=== PATIENT | female | born 1995 | race Caucasian/White ===

== ENCOUNTER → 2017-06-03 12:24 | Outpatient (CLI) | payer OTHER, MEDICAID, SELFPAY ==
--- NOTE | 2017-06-03 12:30 | US_ITS ---
STUDY: ULTRASOUND OF THE FEMALE PELVIS - COMPLETE REASON FOR EXAM: Female, 21 years old. Cramping. Verification of IUD placement. LMP: May 27, 2017. TECHNIQUE: Transabdominal and Transvaginal TECHNICAL QUALITY: Adequate. COMPARISON: None. FINDINGS: The uterus is anteverted and is in a midline position. The uterus measures 8.9 cm x 5.1 cm x 4.1 cm. Normal uterine cervix. The endometrium measures 2.6 mm in thickness, and is hyperechoic. There is no demonstrated endometrial mass. There is no demonstrated myometrial mass. I.U.D. - The patient does have an I.U.D. the IUD is within the fundal portion of the uterus. The right ovary is visualized. The right ovary measures 2.9 cm x 3.1 cm x 2.4 cm. There is a 1.9 cm x 2.2 Marcos by 1.5 cm ovarian cyst. There is no visualized right adnexal mass or complex lesion. There is normal arterial and normal venous vascularity. The left ovary is visualized. The left ovary measures 3.1 cm x 2.2 cm x 1.6 cm. There is no left ovarian cyst or ovarian mass. There is no visualized left adnexal mass or complex lesion. There is normal arterial and normal venous vascularity. There is minimal fluid in the cul-de-sac. US/Pelvic (Non ) IMPRESSION: Right ovarian cyst. The IUD is seen within the fundal portion of the uterus. Electronically Signed: Dayne Juarez MD at 15:47 EST Tel [phone], Service support ,
--- NOTE | 2017-06-03 13:30 | US_ITS ---
STUDY: ULTRASOUND OF THE FEMALE PELVIS - COMPLETE REASON FOR EXAM: Female, 21 years old. Cramping. Verification of IUD placement. LMP: May 27, 2017. TECHNIQUE: Transabdominal and Transvaginal TECHNICAL QUALITY: Adequate. COMPARISON: None. FINDINGS: The uterus is anteverted and is in a midline position. The uterus measures 8.9 cm x 5.1 cm x 4.1 cm. Normal uterine cervix. The endometrium measures 2.6 mm in thickness, and is hyperechoic. There is no demonstrated endometrial mass. There is no demonstrated myometrial mass. I.U.D. - The patient does have an I.U.D. the IUD is within the fundal portion of the uterus. The right ovary is visualized. The right ovary measures 2.9 cm x 3.1 cm x 2.4 cm. There is a 1.9 cm x 2.2 Marcos by 1.5 cm ovarian cyst. There is no visualized right adnexal mass or complex lesion. There is normal arterial and normal venous vascularity. The left ovary is visualized. The left ovary measures 3.1 cm x 2.2 cm x 1.6 cm. There is no left ovarian cyst or ovarian mass. There is no visualized left adnexal mass or complex lesion. There is normal arterial and normal venous vascularity. There is minimal fluid in the cul-de-sac. US/Transvaginal Non- IMPRESSION: Right ovarian cyst. The IUD is seen within the fundal portion of the uterus. Electronically Signed: Dayne Juarez MD at 15:47 EST Tel [phone], Service support ,
== END ==
PROVIDERS: Family Provider Family Medicine; PCP Family Medicine; Visit Provider Nurse Practitioner Women's Health
DX: R10.2 Pelvic and perineal pain (principal); Z30.431 Encounter for routine checking of intrauterine contraceptive device
CPT/HCPCS: 76830; 76856; 93976

== ENCOUNTER → 2017-11-18 15:28 | Outpatient (CLI) | payer OTHER, SELFPAY ==
[2017-11-18 22:56] LABS: Chlamydia Trachomatis by PCR Negative (Negative); Neisserai gonorrhoeae by PCR Negative (Negative); Probe Check PASS; Sample Adequacy Control PASS; Specimen Processing Control PASS
[2017-11-19 09:59] LABS: HIV - WCH Non-Reactive (Nonreactive)
[2017-11-21 03:16] LABS: Rapid Plasmin Reagin (RPR) NONREACTIVE (NONREACTIVE)
[2017-11-23 03:06] LABS: HCV Quant. RNA PCR HCV Not Detected IU/mL (.)
[2017-11-24 11:11] LABS: HEPATITIS B SURFACE AG Negative (Negative); HSV 2 IgG < 0.91 index (0.00-0.90)
[2017-11-27 17:10] LABS: HPV APTIMA, High Risk Positive (Negative); HPV Reflexed? YES, CHARGE PATIENT
== END ==
PROVIDERS: Family Provider Family Medicine; PCP Family Medicine; Visit Provider Nurse Practitioner Women's Health
DX: Z12.4 Encounter for screening for malignant neoplasm of cervix (principal); Z11.3 Encounter for screening for infections with a predominantly sexual mode of transmission
CPT/HCPCS: 36415; 86592; 86695; 86696; 86703; 87340; 87491; 87522; 87591; 87624; 88175; G0145

== ENCOUNTER → 2018-11-30 | Outpatient (CLI) | payer OTHER, SELFPAY ==
[2018-11-30 15:23] VITALS: BMI 35.5
[2018-12-08 16:48] LABS: HPV APTIMA, High Risk Negative (Negative); HPV Reflexed? YES, CHARGE PATIENT
== END | disposition home or self-care (01) ==
LOC: LABSPEC 12-01 09:10
PROVIDERS: Family Provider Family Medicine; PCP Family Medicine; Referring Provider Nurse Practitioner Women's Health; Visit Provider Nurse Practitioner Women's Health
DX: R87.610 Atypical squamous cells of undetermined significance on cytologic smear of cervix (ASC-US) (principal)
CPT/HCPCS: 87624; 88175; G0145

== ENCOUNTER → 2022-10-04 | Outpatient (CLI) | payer MEDICAID, SELFPAY ==
[2022-10-08 07:08] LABS: Chlamydia By Nucleic Acid AMP Negative (Negative); Gonococcus By Nucleic Acid AMP Negative (Negative)
== END | disposition home or self-care (01) ==
LOC: LABSPEC 16:59
PROVIDERS: PCP Family Medicine; Referring Provider Registered Nurse; Visit Provider Registered Nurse
DX: O09.90 Supervision of high risk pregnancy, unspecified, unspecified trimester (principal); Z3A.00 Weeks of gestation of pregnancy not specified
CPT/HCPCS: 87086; 87491; 87591

== ENCOUNTER → 2022-11-04 | Outpatient (CLI) | payer MEDICAID, SELFPAY ==
[2022-11-04 14:10] LABS: Absolute Neutrophil Count 4.3 X10^3/uL (2.0-7.7); Basophil# 0.01 X10^3/uL; Basophil% 0.2 % (0-1); Eosinophil# 0.04 X10^3/uL; Eosinophils% 0.6 % (0-5); Hematocrit 36.9 % (37-47); Hemoglobin 13.3 g/dL (12.0-15.0); Lymphocyte % 24.3 % (19-41); Mean Corpuscular Hgb 32.1 pg (27.0-32.0); Mean Corpuscular Volume 89.1 fL (81-99); Mean Platelet Vol. 10.1 fl (6.2-12.0); Monocyte# 0.31 X10^3/uL; NRBC Flagged by Analyzer 0 % (0-5); Neutrophil # 4.29 X10^3/uL (2.7-7.7); Neutrophil % 69.6 % (47-70); Platelet Count 174 K/mm3 (150-450); RBC Distribution Width CV 11.9 % (11.6-14.6); RBC Distribution Width SD 37.9 fl (35.1-43.9); Red Blood Count 4.14 M/mm3 (4.2-5.4); White Blood Count 6.2 K/mm3 (4.4-11.0)
[2022-11-04 14:49] LABS: NATERA MAILED SPECIMEN
[2022-11-04 15:19] LABS: Glucose Challenge Gest 1H 50g 96 mg/dL (70-140); T4 Free Direct 0.89 ng/dL (0.76-1.46); Thyroid Stim Hormone (TSH) 1.51 uIU/mL (0.358-3.74)
[2022-11-04 15:47] LABS: HIV - WCH Non-Reactive (Nonreactive); Hepatitis B Surface Antigen Non-Reactive (Nonreactive); Rubella IgG Reactive (Nonreactive); Syphilis Antibodies Non-reactive
[2022-11-07 05:07] LABS: V-Zoster IgG (Immunity) 2810 index (Immune >165)
== END | disposition home or self-care (01) ==
LOC: PAVLAB 13:41
PROVIDERS: Registered Nurse; PCP Family Medicine; Referring Provider Advanced Practice Midwife; Visit Provider Advanced Practice Midwife
DX: O09.90 Supervision of high risk pregnancy, unspecified, unspecified trimester (principal); Z31.430 Encounter of female for testing for genetic disease carrier status for procreative management; Z3A.00 Weeks of gestation of pregnancy not specified
CPT/HCPCS: 36415; 82950; 84439; 84443; 85025; 86703; 86762; 86780; 86787; 86850; 86900; 86901; 87340

== ENCOUNTER → 2023-01-27 | Outpatient (CLI) | payer BC, SELFPAY ==
[2023-01-27 09:47] LABS: Absolute Lymphocyte Count 1.32 X10^3/uL (0.83-4.51); Absolute Neutrophil Count 5.3 X10^3/uL (2.0-7.7); Basophil# 0.02 X10^3/uL; Basophil% 0.3 % (0-1); Eosinophil# 0.05 X10^3/uL; Eosinophils% 0.7 % (0-5); Hematocrit 38.8 % (37-47); Hemoglobin 13.2 g/dL (12.0-15.0); Lymphocyte # 1.32 X10^3/ul (0.83-4.51); Lymphocyte % 18.9 % (19-41); Mean Corpuscular Volume 91.1 fL (81-99); Mean Platelet Vol. 10.2 fl (6.2-12.0); Monocyte# 0.28 X10^3/uL; NRBC Flagged by Analyzer 0 % (0-5); Neutrophil # 5.25 X10^3/uL (2.7-7.7); Neutrophil % 75.4 % (47-70); Platelet Count 170 K/mm3 (150-450); RBC Distribution Width CV 12.4 % (11.6-14.6); RBC Distribution Width SD 40.6 fl (35.1-43.9); Red Blood Count 4.26 M/mm3 (4.2-5.4)
[2023-01-27 10:07] LABS: Glucose Challenge Gest 1H 50g 139 mg/dL (70-140)
== END | disposition home or self-care (01) ==
PROVIDERS: PCP Family Medicine; Referring Provider Registered Nurse; Visit Provider Registered Nurse
DX: O09.90 Supervision of high risk pregnancy, unspecified, unspecified trimester (principal); Z3A.00 Weeks of gestation of pregnancy not specified
CPT/HCPCS: 36415; 82950; 85025

== ENCOUNTER → 2023-02-11 | Outpatient (CLI) | payer BC, SELFPAY ==
[2023-02-11 11:19] LABS: Glucose GTT-Gestation. Fasting 82 mg/dL (<105)
[2023-02-11 11:34] LABS: Glucose GTT-Gestational 1 Hr 185 mg/dL (<190)
[2023-02-11 13:14] LABS: Glucose GTT-Gestational 2 Hr 194 mg/dL (<165)
[2023-02-11 13:46] LABS: Glucose GTT-Gestational 3 Hr 147 L (<145)
== END | disposition home or self-care (01) ==
LOC: LAB 09:57
PROVIDERS: PCP Family Medicine; Referring Provider Registered Nurse; Visit Provider Registered Nurse
DX: Z13.1 Encounter for screening for diabetes mellitus (principal)
CPT/HCPCS: 36415; 82951; 82952

== ENCOUNTER 2023-03-04 10:48 | Outpatient (RCR) | payer BC, SELFPAY | END 2023-03-04 23:59 | LOC: DC 10:48 | PROVIDERS: PCP Family Medicine; Visit Provider Registered Nurse | DX: O24.419 Gestational diabetes mellitus in pregnancy, unspecified control (principal); Z3A.00 Weeks of gestation of pregnancy not specified | CPT/HCPCS: 97802 ==

== ENCOUNTER → 2023-03-10 | Outpatient (CLI) | payer BC, SELFPAY ==
[2023-03-10 11:45] LABS: Absolute Lymphocyte Count 1.55 X10^3/uL (0.83-4.51); Absolute Neutrophil Count 5.5 X10^3/uL (2.0-7.7); Basophil# 0.02 X10^3/uL; Basophil% 0.3 % (0-1); Eosinophil# 0.03 X10^3/uL; Eosinophils% 0.4 % (0-5); Hematocrit 37.3 % (37-47); Lymphocyte # 1.55 X10^3/ul (0.83-4.51); Lymphocyte % 20.5 % (19-41); Mean Corp Hgb Conc 34.9 g/dL (32-36); Mean Corpuscular Hgb 30.9 pg (27.0-32.0); Mean Corpuscular Volume 88.6 fL (81-99); Mean Platelet Vol. 10.7 fl (6.2-12.0); Monocyte# 0.43 X10^3/uL; Monocyte% 5.7 % (0-10); NRBC Flagged by Analyzer 0 % (0-5); Neutrophil # 5.47 X10^3/uL (2.7-7.7); Neutrophil % 72.4 % (47-70); Platelet Count 169 K/mm3 (150-450); RBC Distribution Width SD 41.8 fl (35.1-43.9); Red Blood Count 4.21 M/mm3 (4.2-5.4); White Blood Count 7.6 K/mm3 (4.4-11.0)
[2023-03-10 13:02] LABS: T4 Free Direct 0.85 ng/dL (0.76-1.46); Thyroid Stim Hormone (TSH) 0.99 uIU/mL (0.358-3.74)
[2023-03-10 15:08] LABS: HIV - WCH Non-Reactive (Nonreactive); Syphilis Antibodies Non-reactive
== END | disposition home or self-care (01) ==
LOC: PAVLAB 11:18
PROVIDERS: PCP Family Medicine; Referring Provider Obstetrics & Gynecology; Visit Provider Obstetrics & Gynecology
DX: O09.90 Supervision of high risk pregnancy, unspecified, unspecified trimester (principal)
CPT/HCPCS: 36415; 84439; 84443; 85025; 86703; 86780; 86850; 86900; 86901

== ENCOUNTER 2023-03-13 10:48 | Outpatient (RCR) | payer BC, SELFPAY | END 2023-04-03 23:59 | LOC: DC 10:48 | PROVIDERS: PCP Family Medicine; Visit Provider Registered Nurse | DX: O24.419 Gestational diabetes mellitus in pregnancy, unspecified control (principal) | CPT/HCPCS: 97803 ==

== ENCOUNTER → 2023-04-08 | Outpatient (CLI) | payer BC, SELFPAY ==
--- NOTE | 2023-04-08 14:48 | US_ITS ---
STUDY: OBSTETRICAL ULTRASOUND - BIOPHYSICAL PROFILE REASON FOR EXAM: Female, 27 years old Non reactive NST LMP: Unknown. PRIOR ULTRASOUND: None. TECHNIQUE: Transabdominal TECHNICAL QUALITY: Adequate. FINDINGS: There is a single intrauterine fetus. The fetus is in a cephalic presentation. There is demonstrated cardiac activity with a heart rate of 138 bpm. There is a normal amniotic fluid volume. The largest amniotic fluid pocket measures 4.2 cm. The amniotic fluid index (PALOMA) is 10.9 cm. The placenta is anterior in location and is not low lying. There are Grade 3 placental changes. Age by report: 35 weeks, 2 days. UTE by report: May 11, 2023. BIOPHYSICAL PROFILE: Breathing Movements (FBM): 2 Gross Body Movements (GBM): 2 Tone (FT): 2 Amniotic Fluid Volume (AFV): 2 TOTAL SCORE: 8 / 8 US/Biophysical Prof W/O Non Stres IMPRESSION: Normal biophysical profile of 8/8. Electronically Signed: Los Shearer MD at 22:50 EST ,
== END | disposition home or self-care (01) ==
LOC: OPUS 14:47
PROVIDERS: PCP Family Medicine; Referring Provider Advanced Practice Midwife; Visit Provider Advanced Practice Midwife
DX: O28.8 Other abnormal findings on antenatal screening of mother (principal); Z3A.00 Weeks of gestation of pregnancy not specified
CPT/HCPCS: 76819

== ENCOUNTER → 2023-04-10 | Outpatient (CLI) | payer BC, SELFPAY | END | disposition home or self-care (01) | LOC: LABSPEC 13:57 | PROVIDERS: PCP Family Medicine; Referring Provider Obstetrics & Gynecology; Visit Provider Obstetrics & Gynecology | DX: O26.899 Other specified pregnancy related conditions, unspecified trimester (principal); R10.2 Pelvic and perineal pain; Z3A.00 Weeks of gestation of pregnancy not specified | CPT/HCPCS: 87086 ==

== ENCOUNTER 2023-04-12 13:58 | Outpatient (CLI) | payer BC, SELFPAY ==
[2023-04-12 14:10] VITALS: BMI 35.5
[2023-04-12 14:11] VITALS: BP 122/74; PULSE 102; PULSE 93; TEMP 36.7; O2SAT 97
--- NOTE | 2023-04-12 20:32 | OB.TRI.HP_ITS ---
HPI - General HPI Narrative LACHELLE URENA, is a 27 F who presents Maternal Data Information UTE Calculator Estimated Delivery Date Method Current WG Current Estimate 05/11/23 LMP (Certain) 35w 6d PFSH PFSH Medical History Anxiety and depression Thyroid disease Home Medications levothyroxine 88 mcg capsule 88 mcg PO DAILY #30 caps 12/04/22 [Rx Last Taken Unknown] vits 75-iron 28 mg-folic acid 800 mcg-omega3 440 mg oral pack (One Daily ) 1 pkg PO 01/02/23 [History Last Taken Unknown] blood sugar diagnostic (Blood Glucose Test strips) #120 ea 02/12/23 [Rx Last Taken Unknown] blood-glucose meter #1 ea 02/12/23 [Rx Last Taken Unknown] lancets #200 ea 02/12/23 [Rx Last Taken Unknown] metformin 500 mg tablet 1,000 mg PO QHS 04/10/23 [History Last Taken Unknown] Allergy/AdvReac Type Severity Reaction Status Date / Time No Known Allergies Allergy Verified 04/12/23 14:33 Family History Mother Diabetes Grandfather Heart disease Surgical History [place] teeth extracted Social History number of children: 1 Smoking Status: Current some day smoker alcohol intake: current details: social - none during substance use type: does not use caffeine: Yes what type of physical activity do you participate in: none seatbelt use: always do you feel safe at home: Yes additional social history: [facility] History 2 Elective abortions Hx Para 1 Spontaneous abortions Hx # Term Pregnancies Ectopic pregnancies Hx # Pregnancies Multiple births # of living children Past Pregnancies Del. Date Name GA/Weeks Outcome Route Bth Weight Gen Labor Lgth Anesthesia Del Locatn Provider FOB Unknown 2015 Umesh 40 live - full term 8 lbs 9 oz Male 28 epidural [place] [facility] Delivery Date: Last Updated by: Annabelle Javier GBS+ Visit Details Expected Delivery Route/Plan Labor Preferences- CB/BF classes: [] labor support person: Fede labor intervention preferences: [] pain management options preferred: [] cut cord/dad catch: [] : [] PP control planned: [] discussed possible routes of delivery and associated risks: [] special requests: [] Plans Covid status: [] Flu vaccine: [] Tdap vaccine: [] Rhogam: [] LARC form signed: [] Problem list reviewed and updated with the most current plan of care details and appropriate orders placed. Relevant counseling for the gestational age provided. Continue routine care and follow up unless otherwise noted in visit notes/problem list details OB Flowsheet Initial Weight: Not Recorded Date -?-?-?-?-?-?-?-?-?-?-?-?- EGA Weight BP Urine Prot -?-?-?-?-?-?-?-?-?-?-?-?- Glucose FHR FuHt Pres Dilation -?-?-?-?-?-?-?-?-?-?-?-?- Effaced St Visit Note 10/04/22 -?-?-?-?-?-?-?-?-?-?-?-?- 8w 5d 195 lb 8 oz 114/80 -?-?-?-?-?-?-?-?-?-?-?-?- 171 -?-?-?-?-?-?-?-?-?-?-?-?- LC- CRL cw LMP. UTE 05/11/2023. LC- CRL cw LMP. UTE 05/11/2023 . accepts genetic screening. early 1 hour GCT 11/04/22 -?-?-?-?-?-?-?-?-?-?-?-?- 13w 1d 200 lb 2 oz Negative -?-?-?-?-?-?-?-?-?-?-?-?- Negative 165 -?-?-?-?-?-?-?-?-?-?-?-?- KW- STOPPED SMOK ING 3 weeks ago. no cramping or VB. US ordered. labs drawn today 12/04/22 -?-?-?-?-?-?-?-?-?-?-?-?- 17w 3d 204 lb 104/69 Negative -?-?-?-?-?-?-?-?-?-?-?-?- Negative 145 -?-?-?-?-?-?-?-?-?-?-?-?- LC- no vb/crampi ng.discussed and declines afp. 01/02/23 -?-?-?-?--?-?-?-?-?-?-?-?- 21w 4d 202 lb 8 oz 107/75 Nega tive -?-?-?-?-?-?-?-?-?-?-?-?- Negative 147 -?-?-?-?-?-?-?-?-?-?-?-?- JV- no lof, vagi nal bleeding, and feeling movement. normal anatomy scan and deciding on echo. (for fhx of PFO) 01/27/23 -?-?-?-?-?-?-?-?-?-?-?-?- 25w 1d 205 lb 8 oz 108/73 Nega tive -?-?-?-?-?-?-?-?-?-?-?-?- Negative 153 25 -?-?-?-?-?-?-?-?-?-?-?-?- LC- no vb/ctx/lo f. good fm. obtaining 28 week labs today. declines echo for now. 02/24/23 -?-?-?-?-?-?-?-?-?-?-?-?- 29w 1d 207 lb 4 oz 111/76 Nega tive -?-?-?-?-?-?-?-?-?-?-?-?- Negative 152 29 -?-?-?-?-?-?-?-?-?-?-?-?- JV- fasting's ar e 90's- 101 and she has tried snacks vs no snacks, nothing working. wants to try metformin but wants to give it one more week. no lof, vaginal bleeding, or dec fm. 03/10/23 -?-?-?-?-?-?-?-?-?-?-?-?- 31w 1d 206 lb 4 oz 104/73 -?-?-?-?-?-?-?-?-?-?-?-?- 140 31 -?-?-?-?-?-?-?-?-?-?-?-?- SM- fastings now -95, didn't start any medication. seeing chiropractor for her back. no vb lof good fm no regular ctx SM- repeta labs drawn, fasti ngs now -, didn't start any medication. seeing chiropractor for her back. no vb lof good fm no regular ctx 03/24/23 -?-?-?-?-?-?-?-?-?-?-?-?- 33w 1d 213 lb 8 oz 111/75 Nega tive -?-?-?-?-?-?-?-?-?-?-?-?- Negative 155 32 -?-?-?-?-?-?-?-?-?-?-?-?- JV- fasting leve ls now 90's-111, starting metformin at bedtime now. no lof, vaginal bleeding, or dec fm. JV- fasting levels now 90's- 111, starting metformin at bedtime now. no lof, vaginal bleeding, or dec fm. start NSTs next visit. growth scan at 36 weeks. 04/08/23 -?-?-?-?-?-?-?-?-?-?-?-?- 35w 2d 210 lb 4 oz 110/76 Nega tive -?-?-?-?-?-?-?-?-?-?-?-?- Negative 140 35 -?-?-?-?-?-?-?-?-?-?-?-?- kw-no vb/lof/ctx . reports FM. Consulted with JV elevated fasting BS, plan to increase Metformin to 1000 at HS. kw-no vb/lof/ctx. reports FM . Consulted with JV elevated fasting BS, plan to increase Metformin to 1000 at HS. BPP today for minimal variability 04/10/23 -?-?-?-?-?-?-?-?-?-?-?-?- 35w 4d 212 lb 4 oz 93/63 Nega tive -?-?-?-?-?-?-?-?-?-?-?-?- Negative 145 -?-?-?-?-?-?-?-?-?-?-?-?- kw-reactive NST. good fm. Assessment & Plan (1) Decreased movement affecting management of in third trimester: PLAN: NST reactive here and patient is now feeling movement. ok to dc to home
--- NOTE | 2023-04-12 20:32 | OB.TRI.NOTE ---
HPI - General HPI Narrative LACHELLE URENA, is a 27 F who presents Maternal Data Information UTE Calculator Estimated Delivery Date Method Current WG Current Estimate 05/11/23 LMP (Certain) 35w 6d PFSH PFSH Medical History Anxiety and depression Thyroid disease Home Medications levothyroxine 88 mcg capsule 88 mcg PO DAILY #30 caps 12/04/22 [Rx Last Taken Unknown] vits 75-iron 28 mg-folic acid 800 mcg-omega3 440 mg oral pack (One Daily ) 1 pkg PO 01/02/23 [History Last Taken Unknown] blood sugar diagnostic (Blood Glucose Test strips) #120 ea 02/12/23 [Rx Last Taken Unknown] blood-glucose meter #1 ea 02/12/23 [Rx Last Taken Unknown] lancets #200 ea 02/12/23 [Rx Last Taken Unknown] metformin 500 mg tablet 1,000 mg PO QHS 04/10/23 [History Last Taken Unknown] Allergy/AdvReac Type Severity Reaction Status Date / Time No Known Allergies Allergy Verified 04/12/23 14:33 Family History Mother Diabetes Grandfather Heart disease Surgical History [place] teeth extracted Social History number of children: 1 Smoking Status: Current some day smoker alcohol intake: current details: social - none during substance use type: does not use caffeine: Yes what type of physical activity do you participate in: none seatbelt use: always do you feel safe at home: Yes additional social history: [facility] History 2 Elective abortions Hx Para 1 Spontaneous abortions Hx # Term Pregnancies Ectopic pregnancies Hx # Pregnancies Multiple births # of living children Past Pregnancies Del. Date Name GA/Weeks Outcome Route Bth Weight Gen Labor Lgth Anesthesia Del Locatn Provider FOB Unknown 2015 Umesh 40 live - full term 8 lbs 9 oz Male 28 epidural [place] [facility] Delivery Date: Last Updated by: Annabelle Javier GBS+ Visit Details Expected Delivery Route/Plan Labor Preferences- CB/BF classes: [] labor support person: Fede labor intervention preferences: [] pain management options preferred: [] cut cord/dad catch: [] : [] PP control planned: [] discussed possible routes of delivery and associated risks: [] special requests: [] Plans Covid status: [] Flu vaccine: [] Tdap vaccine: [] Rhogam: [] LARC form signed: [] Problem list reviewed and updated with the most current plan of care details and appropriate orders placed. Relevant counseling for the gestational age provided. Continue routine care and follow up unless otherwise noted in visit notes/problem list details OB Flowsheet Initial Weight: Not Recorded Date <del>?</del> EGA Weight BP Urine Prot <del>?</del> Glucose FHR FuHt Pres Dilation <del>?</del> Effaced St Visit Note 10/04/22 <del>?</del> 8w 5d 195 lb 8 oz 114/80 <del>?</del> 171 <del>?</del> LC- CRL cw LMP. UTE 05/11/2023. LC- CRL cw LMP. UTE 05/11/2023. accepts genetic screening. early 1 hour GCT 11/04/22 <del>?</del> 13w 1d 200 lb 2 oz Negative <del>?</del> Negative 165 <del>?</del> KW- STOPPED SMOKING 3 weeks ago. no cramping or VB. US ordered. labs drawn today 12/04/22 <del>?</del> 17w 3d 204 lb 104/69 Negative <del>?</del> Negative 145 <del>?</del> LC- no vb/cramping.discussed and declines afp. 01/02/23 <del>?</del> 21w 4d 202 lb 8 oz 107/75 Negative <del>?</del> Negative 147 <del>?</del> JV- no lof, vaginal bleeding, and feeling movement. normal anatomy scan and deciding on echo. (for fhx of PFO) 01/27/23 <del>?</del> 25w 1d 205 lb 8 oz 108/73 Negative <del>?</del> Negative 153 25 <del>?</del> LC- no vb/ctx/lof. good fm. obtaining 28 week labs today. declines echo for now. 02/24/23 <del>?</del> 29w 1d 207 lb 4 oz 111/76 Negative <del>?</del> Negative 152 29 <del>?</del> JV- fasting's are 90's- 101 and she has tried snacks vs no snacks, nothing working. wants to try metformin but wants to give it one more week. no lof, vaginal bleeding, or dec fm. 03/10/23 <del>?</del> 31w 1d 206 lb 4 oz 104/73 <del>?</del> 140 31 <del>?</del> SM- fastings now 85-95, didn't start any medication. seeing chiropractor for her back. no vb lof good fm no regular ctx SM- repeta labs drawn, fastings now 85-95, didn't start any medication. seeing chiropractor for her back. no vb lof good fm no regular ctx 03/24/23 <del>?</del> 33w 1d 213 lb 8 oz 111/75 Negative <del>?</del> Negative 155 32 <del>?</del> JV- fasting levels now 90's-111, starting metformin at bedtime now. no lof, vaginal bleeding, or dec fm. JV- fasting levels now 90's-111, starting metformin at bedtime now. no lof, vaginal bleeding, or dec fm. start NSTs next visit. growth scan at 36 weeks. 04/08/23 <del>?</del> 35w 2d 210 lb 4 oz 110/76 Negative <del>?</del> Negative 140 35 <del>?</del> kw-no vb/lof/ctx. reports FM. Consulted with JV elevated fasting BS, plan to increase Metformin to 1000 at HS. kw-no vb/lof/ctx. reports FM. Consulted with JV elevated fasting BS, plan to increase Metformin to 1000 at HS. BPP today for minimal variability 04/10/23 <del>?</del> 35w 4d 212 lb 4 oz 93/63 Negative <del>?</del> Negative 145 <del>?</del> kw-reactive NST. good fm. Assessment & Plan (1) Decreased movement affecting management of in third trimester: PLAN: NST reactive here and patient is now feeling movement. ok to dc to home
== END 2023-04-12 14:40 | disposition home or self-care (01) ==
LOC: WPOUT 13:59 → WP 14:05
PROVIDERS: PCP Family Medicine; Referring Provider Obstetrics & Gynecology; Visit Provider Obstetrics & Gynecology
DX: O36.8130 Decreased fetal movements, third trimester, not applicable or unspecified (principal); Z3A.35 35 weeks gestation of pregnancy; O99.333 Smoking (tobacco) complicating pregnancy, third trimester; F17.200 Nicotine dependence, unspecified, uncomplicated
CPT/HCPCS: 59025; 59050; 99221; G0378

== ENCOUNTER → 2023-04-15 | Outpatient (CLI) | payer BC, SELFPAY ==
[2023-04-15 16:16] LABS: Group B Strep DNA By PCR Negative (Negative); Internal Control PASS; Probe Check PASS; Specimen Processing Control PASS
== END | disposition home or self-care (01) ==
LOC: LABSPEC 13:58
PROVIDERS: PCP Family Medicine; Referring Provider Advanced Practice Midwife; Visit Provider Advanced Practice Midwife
DX: Z34.90 Encounter for supervision of normal pregnancy, unspecified, unspecified trimester (principal)
CPT/HCPCS: 87081; 87653

== ENCOUNTER → 2023-04-18 | Outpatient (CLI) | payer BC, SELFPAY ==
--- NOTE | 2023-04-18 14:26 | US_ITS ---
STUDY: SECOND AND THIRD TRIMESTER OBSTETRICAL ULTRASOUND - LIMITED REASON FOR EXAM: Female, 27 years old 36 wk growth -- GDM LMP: August 04, 2022. PRIOR ULTRASOUND: None. TECHNIQUE: Transabdominal TECHNICAL QUALITY: Adequate. FINDINGS: There is a single intrauterine fetus. The fetus is in a cephalic presentation. There is demonstrated cardiac activity with a heart rate of 133 bpm. There is a normal amniotic fluid volume. The largest amniotic fluid pocket measures 6.4 cm x 4.7 cm. The amniotic fluid index (PALOMA) is 16.85 cm. The placenta is fundal in location. There are Grade 2 placental changes. The cervix measures 3.4 cm in length. BIOMETRY: BPD: 8.74 cm: 35 weeks, 2 days HC: 32.47 cm: 36 weeks, 5 days AC: 33.76 cm: 37 weeks, 5 days FL: 6.92 cm: 35 weeks, 4 days Age by LMP: 36 weeks, 5 days. UTE by LMP May 11, 2023 age by current US: 36 weeks, 2 days. UTE by current US: May 14, 2023. Estimated weight: 3040 grams, +/- 456 grams, 57.4 percentile. US/OB Limited With Biometrics IMPRESSION: Single live intrauterine gestation with a mean gestational age of 36 weeks and 2 days. Electronically Signed: Dayne Juarez MD at 12:26 EST ,
[2023-04-18 16:48] LABS: T4 Free Direct 0.92 ng/dL (0.76-1.46); Thyroid Stim Hormone (TSH) 1.86 uIU/mL (0.358-3.74)
[2023-04-18 17:15] LABS: Hepatitis C Antibody Non-Reactive (Nonreactive)
== END | disposition home or self-care (01) ==
PROVIDERS: Advanced Practice Midwife; PCP Family Medicine; Referring Provider Obstetrics & Gynecology; Visit Provider Obstetrics & Gynecology
DX: O24.419 Gestational diabetes mellitus in pregnancy, unspecified control (principal); O99.280 Endocrine, nutritional and metabolic diseases complicating pregnancy, unspecified trimester; E07.9 Disorder of thyroid, unspecified; Z3A.00 Weeks of gestation of pregnancy not specified
CPT/HCPCS: 36415; 76816; 84439; 84443; 86803

== ENCOUNTER 2023-04-23 10:30 | Outpatient (CLI) | payer BC, SELFPAY ==
[2023-04-23 10:44] VITALS: BP 124/67; PULSE 82; TEMP 36.3
--- NOTE | 2023-04-23 10:45 | US_ITS ---
STUDY: OBSTETRICAL ULTRASOUND - BIOPHYSICAL PROFILE REASON FOR EXAM: Female, 27 years old deceleration LMP: August 04, 2022. PRIOR ULTRASOUND: Comparison is made with prior study dated April 18, 2023 TECHNIQUE: Transabdominal TECHNICAL QUALITY: Adequate. FINDINGS: There is a single intrauterine fetus. The fetus is in a cephalic presentation. There is demonstrated cardiac activity with a heart rate of 150 bpm. There is a normal amniotic fluid volume. The largest amniotic fluid pocket measures 7.1 cm x 3 cm. The amniotic fluid index (PALOMA) is 15.6 cm. The placenta is fundal in location. There are Grade 2 placental changes. Age by LMP: 37 weeks, 3 days. UTE by LMP: May 11, 2023. age by prior US: 37 weeks, 0 days. UTE by prior US: May 14, 2023. BIOPHYSICAL PROFILE: Breathing Movements (FBM): 2 Gross Body Movements (GBM): 2 Tone (FT): 2 Amniotic Fluid Volume (AFV): 2 TOTAL SCORE: 8 / 8 US/Biophysical Prof W/O Non Stres IMPRESSION: Normal biophysical profile of 8/8. Electronically Signed: Dayne Juarez MD at 13:58 EST ,
[2023-04-23 10:47] VITALS: BMI 35.7
[2023-04-23 11:28] LABS: ROM Internal Control Test YES-OK TO RESULT pt. (Internal QC); ROM Patient Test Negative (Negative); Record Kit Lot#, ROM+ K1374
--- NOTE | 2023-04-23 12:48 | OB.TRI.HP_ITS ---
HPI - General HPI Narrative LACHELLE URENA, is a 27 y/o @ 37 week who presents to L&D from my office today. She was on the NST and the baby had a spontaneous decel down to 90 x 45 seconds. BPP and repeat NST was ordered. BPP was 8/8 and FI 15. Maternal Data Information UTE Calculator Estimated Delivery Date Method Current WG Current Estimate 05/11/23 LMP (Certain) 37w 3d PFSH PFSH Medical History Anxiety and depression Thyroid disease Home Medications levothyroxine 88 mcg capsule 88 mcg PO DAILY #30 caps 12/04/22 [Rx Last Taken 02/04/23 09:00 88 mcg] vits 75-iron 28 mg-folic acid 800 mcg-omega3 440 mg oral pack (One Daily ) 1 pkg PO DAILY 01/02/23 [History Last Taken 04/22/23 17:00 1 pkg] blood sugar diagnostic (Blood Glucose Test strips) #120 ea 02/12/23 [Rx Last Taken Unknown] blood-glucose meter #1 ea 02/12/23 [Rx Last Taken Unknown] lancets #200 ea 02/12/23 [Rx Last Taken Unknown] metformin 500 mg tablet 1,000 mg PO QHS 04/10/23 [History Last Taken 04/22/23 22:00 1,000 mg] Allergy/AdvReac Type Severity Reaction Status Date / Time No Known Allergies Allergy Verified 04/23/23 11:48 Family History Mother Diabetes Grandfather Heart disease Surgical History [place] teeth extracted Social History number of children: 1 Smoking Status: Current some day smoker alcohol intake: current details: social - none during substance use type: does not use caffeine: Yes what type of physical activity do you participate in: none seatbelt use: always do you feel safe at home: Yes additional social history: [facility] History 2 Elective abortions Hx Para 1 Spontaneous abortions Hx # Term Pregnancies Ectopic pregnancies Hx # Pregnancies Multiple births # of living children Past Pregnancies Del. Date Name GA/Weeks Outcome Route Bth Weight Infant Gen Labor Lgth Anesthesia Del Locatn Provider FOB Unknown 2016 Umesh 40 live - full term 8 lbs 9 oz Male 27 epidural [place] [facility] Delivery Date: Last Updated by: Annabelle Javier GBS+ Visit Details Expected Delivery Route/Plan labor Preferences- CB/BF classes: [] labor support person: Gonzalo labor intervention preferences: [] pain management options preferred: [] cut cord/dad catch: [] : [] PP control planned: [] discussed possible routes of delivery and associated risks: [] special requests: [] Plans Covid status: declined Flu vaccine: declined Tdap vaccine: declined Rhogam: na LARC form signed: declined movement and labor precautions reviewed. Problem list reviewed and updated with the most current plan of care details and appropriate orders placed. Relevant counseling for the gestational age provided. Continue routine care and follow up unless otherwise noted in visit notes/problem list details OB Flowsheet Initial Weight: Not Recorded Date -?-?-?-?-?-?-?-?-?-?-?-?- EGA Weight BP Urine Prot -?-?-?-?-?-?-?-?-?-?-?-?- Glucose FHR FuHt Pres Dilation -?-?-?-?-?-?-?-?-?-?-?-?- Effaced St Visit Note 10/04/22 -?-?-?-?-?-?-?-?-?-?-?-?- 8w 5d 195 lb 8 oz 114/80 -?-?-?-?-?-?-?-?-?-?-?-?- 171 -?-?-?-?-?-?-?-?-?-?-?-?- LC- CRL cw LMP. UTE 05/11/2023. LC- CRL cw LMP. UTE 05/11/2023 . accepts genetic screening. early 1 hour GCT 11/04/22 -?-?-?-?-?-?-?-?-?-?-?-?- 13w 1d 200 lb 2 oz Negative -?-?-?-?-?-?-?-?-?-?-?-?- Negative 165 -?-?-?-?-?-?-?-?-?-?-?-?- KW- STOPPED SMOK ING 3 weeks ago. no cramping or VB. US ordered. labs drawn today 12/04/22 -?-?-?-?-?-?-?-?-?-?-?-?- 17w 3d 204 lb 104/69 Negative -?-?-?-?-?-?-?-?-?-?-?-?- Negative 145 -?-?-?-?--?-?-?-?-?-?-?-?- LC- no vb/crampi ng.discussed and declines afp. 01/02/23 -?-?-?-?-?-?-?-?-?-?-?-?- 21w 4d 202 lb 8 oz 107/75 Nega tive -?-?-?-?-?-?-?-?-?-?-?-?- Negative 147 -?-?-?-?-?-?-?-?-?-?-?-?- JV- no lof, vagi nal bleeding, and feeling movement. normal anatomy scan and deciding on echo. (for fhx of PFO) 01/27/23 -?-?-?-?-?-?-?-?-?-?-?-?- 25w 1d 205 lb 8 oz 108/73 Nega tive -?-?-?-?-?-?-?-?-?-?-?-?- Negative 153 25 -?-?-?-?-?-?-?-?-?-?-?-?- LC- no vb/ctx/lo f. good fm. obtaining 28 week labs today. declines echo for now. 02/24/23 -?-?-?-?-?-?-?-?-?-?-?-?- 29w 1d 207 lb 4 oz 111/76 Nega tive -?-?-?-?-?-?-?-?-?-?-?-?- Negative 152 29 -?-?-?-?-?-?-?-?-?-?-?-?- JV- fasting's ar e 90's- 101 and she has tried snacks vs no snacks, nothing working. wants to try metformin but wants to give it one more week. no lof, vaginal bleeding, or dec fm. 03/10/23 -?-?-?-?-?-?-?-?-?-?-?-?- 31w 1d 206 lb 4 oz 104/73 -?-?-?-?-?--?-?-?-?-?-?-?- 140 31 -?-?-?-?-?-?-?-?-?-?-?-?- SM- fastings now -, didn't start any medication. seeing chiropractor for her back. no vb lof good fm no regular ctx SM- repeta labs drawn, fasti ngs now -, didn't start any medication. seeing chiropractor for her back. no vb lof good fm no regular ctx 03/24/23 -?-?-?-?-?-?-?-?-?-?-?-?- 33w 1d 213 lb 8 oz 111/75 Nega tive -?-?-?-?-?-?-?-?-?-?-?-?- Negative 155 32 -?-?-?-?-?-?-?-?-?-?-?-?- JV- fasting leve ls now 90's-111, starting metformin at bedtime now. no lof, vaginal bleeding, or dec fm. JV- fasting levels now 90's- 111, starting metformin at bedtime now. no lof, vaginal bleeding, or dec fm. start NSTs next visit. growth scan at 36 weeks. 04/08/23 -?-?-?-?-?-?-?-?-?-?-?-?- 35w 2d 210 lb 4 oz 110/76 Nega tive -?-?-?-?-?-?-?-?-?-?-?-?- Negative 140 35 -?-?-?-?-?-?-?-?-?-?-?-?- kw-no vb/lof/ctx . reports FM. Consulted with JV elevated fasting BS, plan to increase Metformin to 1000 at HS. kw-no vb/lof/ctx. reports FM . Consulted with JV elevated fasting BS, plan to increase Metformin to 1000 at HS. BPP today for minimal variability 04/10/23 -?-?-?-?-?-?-?-?-?-?-?-?- 35w 4d 212 lb 4 oz 93/63 Nega tive -?-?-?-?-?-?-?-?-?-?-?-?- Negative 145 -?-?-?-?-?-?-?-?-?-?-?-?- kw-reactive NST. good fm. 04/15/23 -?-?-?-?-?-?-?-?-?-?-?-?- 36w 2d 208 lb 8 oz 107/77 Nega tive -?-?-?-?-?-?-?-?-?-?-?-?- Negative 150 36 1 -?-?-?-?-?-?-?-?-?-?-?-?- kw- reactive NST . BS doing better on the 1000 mg metformin. gbs today. kw- reactive NST. BS doing b jered on the 1000 mg metformin. gbs today. thyroid labs ordered 04/18/23 -?-?-?-?-?-?-?-?-?-?-?-?- 36w 5d 209 lb 102/78 Negative -?-?-?-?-?-?-?-?-?-?-?-?- Negative 140 -?-?-?-?-?-?-?-?-?-?-?-?- SM- no vb lof go od fm no regular ctx 04/23/23 -?-?-?-?-?-?-?-?-?-?-?--?- 37w 3d 208 lb 4 oz 111/76 Nega tive -?-?-?-?-?-?-?-?-?-?-?-?- Negative 140 -?-?-?-?-?-?-?-?-?-?-?-?- JV- NST showed m oderate variability with accelerations for the first 17 minutes, however a spontaneous decel down to 90's for 45 seconds was noted that was then followed by minimal variability. sending to L&D for further monitoring. ROS Constitutional Constitutional: Reports systems reviewed and no addt'l complaints, except as documented Gastrointestinal Gastrointestinal: Denies bloating, constipation, cramping, diarrhea, nausea or vomiting Genitourinary Genitourinary: Reports other Details: Denies vaginal odor, vaginal bleeding, or vaginal discharge ; Denies difficulty urinating or flank pain NST FHR Rate Baby A Baseline: 140 Variability:: Moderate Accelerations:: 15 x 15 Decelerations:: None NST Reactive:: Yes FHR Category:: Category I Assessment & Plan (1) heart rate decelerations affecting management of mother: COMMENT: bpp 12/10, fredo 17 (2) Tetanus, diphtheria, and acellular pertussis (Tdap) vaccination declined: (3) Segmental and somatic dysfunction of thoracic region: (4) Gestational diabetes: COMMENT: metformin- 2x weekly NSTs and growth US at 36(57%) (5) Spondylolisthesis at L5-S1 level: COMMENT: Identified on previous CT, healed (6) Back pain: QUALIFIERS: Back pain location: low back pain Chronicity: acute Back pain laterality: bilateral Sciatica presence: with sciatica Sciatica laterality: bilateral sciatica Qualified Code(s): M54.42 - Lumbago with sciatica, left side; M54.41 - Lumbago with sciatica, right side (7) Segmental and somatic dysfunction of sacral region: (8) Segmental and somatic dysfunction of lumbar region: (9) Family history of congenital heart defect: COMMENT: echo recommended, declines (10) Teratogen exposure in current , single gestation: COMMENT: shingles exposure titer drawn, 11/07/22 immune to varicella (11) Tobacco use during : COMMENT: cessation recommended, down to 1-2/day (12) : QUALIFIERS: Weeks of gestation: 37 weeks Qualified Code(s): Z3 A.37 - 37 weeks gestation of COMMENT: neg gbs, NIPT low risk, Carrier neg. , nl anatomy late to obtain HIV/syp. obtain second with tsh in 3rd trimester labs around 34- 36 weeks. (13) , supervision, high-risk: COMMENT: PRR UTE 05/11/2023, PC: [place]: gonzalo (14) ASCUS with positive high risk HPV cervical: (15) Genital warts: (16) Anxiety and depression: (17) Thyroid disease: COMMENT: hypothyroidism - CHECK TSHR-AB AT 36 WEEKS on synthyroid 88mcg, refill sent. checking q trimester . november 02. Charges/Coding Multi Select Codes Urinary/Genital Urinary/Genital CPT Codes: 63417-83 non-stress test Interp
== END 2023-04-23 12:18 | disposition home or self-care (01) ==
LOC: WPOUT 10:36 → WP 10:37
PROVIDERS: PCP Family Medicine; Referring Provider Obstetrics & Gynecology; Visit Provider Obstetrics & Gynecology
DX: O99.891 Other specified diseases and conditions complicating pregnancy (principal); O24.415 Gestational diabetes mellitus in pregnancy, controlled by oral hypoglycemic drugs; O99.333 Smoking (tobacco) complicating pregnancy, third trimester; O99.283 Endocrine, nutritional and metabolic diseases complicating pregnancy, third trimester; O99.892 Other specified diseases and conditions complicating childbirth; O99.343 Other mental disorders complicating pregnancy, third trimester; E03.9 Hypothyroidism, unspecified; M99.02 Segmental and somatic dysfunction of thoracic region; M43.17 Spondylolisthesis, lumbosacral region; M99.04 Segmental and somatic dysfunction of sacral region; M99.03 Segmental and somatic dysfunction of lumbar region; F17.200 Nicotine dependence, unspecified, uncomplicated; F41.9 Anxiety disorder, unspecified; F32.A Depression, unspecified; Z3A.37 37 weeks gestation of pregnancy
CPT/HCPCS: 59025; 59050; 76819; 84112; 99221; G0378

== ENCOUNTER 2023-05-09 07:20 | Inpatient (IN) | payer BC, SELFPAY ==
[2023-05-09] VITALS (60 sets, daily range): BP systolic 107–177; BP diastolic 59–95; PULSE 67–111; RESP 18; TEMP 36.4–37.3; O2SAT 88–100; BMI 35.8
--- OUTSIDE RECORDS SUMMARY | 2023-05-09 07:27 | XMS RPT_ITS | CCD ---
Author Name Unknown Address [address] [place] [address] Organization [facility] Team Providers Care Foot Press Operator Name Role Phone Malina Bruce MD Unavailable [phone] Unavailable Unavailable Unavailable MERLE HARSH RACHANA Unavailable Unavailable KANDACE MAYS Unavailable Unavailable JOSÉ, ARIADNA M Unavailable Unavailable KANDACE MAYS Unavailable Unavailable , ARIADNA M Unavailable Unavailable KANDACE MAYS Unavailable Unavailable MERLE, HARSH RACHANA Unavailable Unavailable KANDACE MAYS Unavailable Unavailable Fanello, Harsh K Unavailable Unavailable Fanello, Harsh K Unavailable Unavailable Fanello, Harsh K Unavailable Unavailable Fanello, Harhs K Unavailable Unavailable Malina Bruce MD Unavailable [phone] Yamilex Esquivel Unavailable Unavailable Unavailable Yamilex Esquivel Unavailable Yamilex Esquivel Unavailable Jet Agudelo Unavailable Unavailable ObKaya babcock Unavailable [phone] MartínezDemetrius Unavailable Unavailable Fried, Brenda Unavailable Unavailable Unavailable Unavailable PHYSICIAN, NOT RECORDED Primary Care Physician Doc Martinez Unavailable Unavailable Yamilex Esquivel PA-C Primary Care Provider [phone] Yamilex Esquivel PA-C Unavailable YAMILEX ESQUIVEL Attending Unavailable YAMILEX ESQUIVEL Primary Care Unavailable Dr. Doc Rivero Attending Unavaila ble Newbill, Mr. Yamilex Beach Primary Care Unavail able Newbill, Mr. Yamilex Beach Attending Unavail able Newbill, Mr. Yamilex Beach Referring Unavail able Newbill, Mr. Yamilex [place] [facility] Unavail able FRIEDBIJU, POLYMERIZATION HELPER BRENDA RAMIRO Referring Unava ilable Newbill, Mr. Yamilex [place] [facility] Unavail able FRIED, CNM, POLYMERIZATION HELPER BRENDA RAMIRO Attending Unava ilable Newbill, Mr. Yamilex [place] Primary [facility] Unavail able Newbill, Mr. Yamilex Beach Attending Unavail able Newbill, Mr. Yamilex Beach Referring Unavail able Newbill, Mr. Yamilex Beach Attending Unavail able Newbill, Mr. Yamilex [place] Referring Unavail able Newbill, Mr. Yamilex [place] Primary Care Unavail able Newbill, Mr. Yamilex [place] Primary Care Unavail able Newbill, Mr. Yamilex Beach Attending Unavail able Newbill, Mr. Yamilex [place] Referring Unavail able Newbill, Mr. Yamilex [place] [facility] Unavail able FRIEDBIJU, POLYMERIZATION HELPER BRENDA RAMIRO Attending Unava ilable Newbill, Mr. [facility]ilex [place] [facility] Unavail able Jean, Ms. Mello Mary Attending Unavail able Newbill, Mr. Yamilex [place] [facility] Unavail able FRIEDBIJU, POLYMERIZATION HELPER BRENDA RAMIOR Attending Unava ilable BIJU APPIAH, POLYMERIZATION HELPER BRENDA RAMIRO Referring Unava ilable Newbill, Mr. Yamilex [place] [facility] Unavail able BIJU APPIAH, POLYMERIZATION HELPER BRENDA RAMIRO Attending Unava ilable MD PATRICK PINTO Attending Unavail able MD PATRICK PINTO Referring Unavail able Newbill, Mr. Yamilex [place] Primary [facility] Unavail able [facility] Primary Care Unavailable SUSSY VARGAS Attending Unavailable MALINA BRUCE Referring Unavailabl kelly Medications Current Medications Medication Drug Class(es) Dates Sig (Normalized) Sig (Original) cephalexin 500 mg oral capsule (2 sources) Cephalosporin Antibacterial Start: 10-02-2022 End: 10-09-2022 take 2 capsules by mouth twice daily cephalexin (Keflex) 500 mg capsule Indications: Infected insect bite of right lower extremity, initial encounter Take 2 capsules (1,000 mg) by mouth 2 times a day for 7 days. 28 capsule 0 10/02/2022 10/09/2022 Active Completed/Discontinued Medications Medication Drug Class(es) Dates Sig (Normalized) Sig (Original) ALPRAZolam 1 mg oral tablet (14 sources) Benzodiazepine Start: 12-31-2021 ALPRAZolam 1 MG Oral Tablet 1/2 or 1 tab bid prn panick attacks Quantity: 10 Refills: 0 Ordered: 31-Dec-2021 Newbill PA-CAxeln Start : 31-Dec-2021 Active F41.0 amitriptyline hydrochloride 10 mg oral tablet (14 sources) Tricyclic Antidepressant Start: 11-26-2021 take 1 tablet by mouth at bedtime Amitriptyline HCl - 10 MG Oral Tablet TAKE 1 TABLET AT BEDTIME. Quantity: 30 Refills: 6 Ordered: 26-Nov-2021 Newbill DARRIAN-CYamilex Start : 26-Nov-2021 Active azithromycin 250 mg oral tablet (2 sources) Macrolide Antimicrobial Start: 02-13-2022 Azithromycin 250 MG Oral Tablet TAKE DIRECTED PER PACKAGE INSTRUCTIONS. Quantity: 1 Refills: 0 Ordered: 13-Feb-2022 Newbill PA-CYamilex Start : 13-Feb-2022 Active bisacodyl 5 mg delayed release oral tablet (5 sources) Stimulant Laxative Start: 01-02-2022 Bisacodyl EC 5 MG Oral Tablet Delayed Release Take 2 tablets ( 2 hrs before starting Miralax bowel cleanse). Quantity: 2 Refills: 0 Ordered: 02-Jan-2022 Funmilayo Pena PA-C Start : 02-Jan-2022 Active part of bowel cleanse brompheniramine maleate 0.4 mg/ml / dextromethorphan hydrobromide 2 mg/ml / pseudoephedrine hydrochloride 6 mg/ml oral solution (4 sources) alpha-Adrenergic Agonist, Uncompetitive D-qstbsg-Y-aspartat e Receptor Antagonist, Sigma-1 Agonist Start: 02-13-2022 take 5-10 mL by mouth every four to six hours as needed for cough Pseudoeph-Bromphen -DM 30-2-10 MG/5ML Oral Syrup take 5-10 mL po q4-6 hrs prn cough, cold, or allergy symptoms Quantity: 200 Refills: 0 Ordered: 13-Feb-2022 Yamilex Esquivel PA-C Start : 13-Feb-2022 Active 24 hr buPROPion hydrochloride 150 mg extended release oral tablet (6 sources) Aminoketone Start: 11-28-2016 take 1 tablet by mouth once daily BUPROPION HCL ER (XL) 150 MG [id number] One tablet by mouth daily BUPROPION HCL [id number] Malina Bruce MD Problems Active Problems Problem Classification Problem Date Documented Da te Episodic/Chronic Administrative/social admission (20 sources) Patient encounter status; Translations: [Health examination of defined subpopulations] Resolved: 02-13-2022 Episodic Anxiety disorders (20 sources) Anxiety; Translations: [Anxiety state, unspecified] Onset: 05-02-2022 Chronic Cardiac and circulatory congenital anomalies (20 sources) Patent foramen ovale; Translations: [Ostium secundum type atrial septal defect] Chronic Cardiac dysrhythmias (20 sources) Tachycardia; Translations: [Tachycardia, unspecified] Episodic Conditions associated with dizziness or vertigo (1 source) Conditions associated with dizziness or vertigo 03-08-2021 Past or Other Problems Problem Classification Problem Date Documented Da te Episodic/Chronic Abdominal pain (20 sources) Right upper quadrant pain; Translations: [Abdominal pain, right upper quadrant] Onset: 12-31-2021 Resolved: 07-03-2022 Episodic Blindness and vision defects (1 source) Other visual disturbances; Translations: [Other visual disturbances] Onset: 05-02-2022 Episodic Conditions associated with dizziness or vertigo (20 sources) Dizziness; Translations: [Dizziness and giddiness] Onset: 05-02-2022 05-02-2022 Episodic Results Test Name Value Interpretation Reference Range Facil ity Vital Signs Date Time Vital Sign Value Performing Clinician Facility 10-02-2022 14: Body height 162.6 cm Yamilex Esquivel PA-C Work Phone: [facility] 10-02-2022 14:040 Body mass index (BMI) [Ratio] 32.89 kg/m2 Yamilex Esquivel PA-C Work Phone: [facility] 10-02-2022 14: Body temperature 98.2 [degF] Yamilex Newbill PA-C Work Phone: [facility] 10-02-2022 14:12-0400 Body weight 86.91 kg Yamilex Newbill PA-C Work Phone: [facility] 10-02-2022 14:12-0400 Diastolic blood pressure 76 mm[Hg] Yamilex Newbill PA-C Work Phone: [facility] 10-02-2022 14:12-0400 Heart rate 112 /min Yamilex Newbill PA-C Work Phone: [facility] 10-02-2022 14:12-0400 Systolic blood pressure 107 mm[Hg] Yamilex Newbill PA-C Work Phone: [facility] 08-01-2022 14:40-0400 Body height 162.56 cm Yamilex M Newbill Work Phone: [facility] [address] Work Phone: 08-01-2022 14:40-0400 Body mass index (BMI) [Ratio] 34.06 kg/m2 Yamilex M Newbill Work Phone: [facility] [address] Work Phone: 08-01-2022 14:40-0400 Body surface area Derived from formula 1.95 m2 Yamilex M Newbill Work Phone: [facility] [address] Work Phone: 08-01-2022 14:40-0400 Body weight 89.99 kg Yamilex M Newbill Work Phone: [facility] [address] Work Phone: 08-01-2022 14:40-0400 Diastolic blood pressure 78 mm[Hg] Yamilex M Newbill Work Phone: [facility] [address] Work Phone: 08-01-2022 14:40-0400 Systolic blood pressure 110 mm[Hg] Yamilex M Newbill Work Phone: [place] [address] Work Phone: 07-17-2022 13:11-0400 Body height 162.56 cm Yamilex Kimberly Newbill Work Phone: [place] [address] Work Phone: 07-17-2022 13:11-0400 Body mass index (BMI) [Ratio] 34.74 kg/m2 Yamilex Kimberly Newbill Work Phone: [place] [address] Work Phone: 07-17-2022 13:11-0400 Body surface area Derived from formula 1.97 m2 Yamilex Reyl Work Phone: [address] Work Phone: 07-17-2022 13:11-0400 Body weight 91.79 kg Yamilex Reyl Work Phone: [address] Work Phone: 07-17-2022 13:11-0400 Diastolic blood pressure 78 mm[Hg] Yamilex Kimberly Newbill Work Phone: [place] [address] Work Phone: 07-17-2022 13:11-0400 Systolic blood pressure 122 mm[Hg] Yamilex Harris Newbill Work Phone: [address] Work Phone: 07-03-2022 15:02-0500 Body height 162.56 cm Yamilex Kimberly Newbill Work Phone: [facility] Work Phone: 07-03-2022 15:02-0500 Body mass index (BMI) [Ratio] 35.02 kg/m2 Yamilex Kimberly Newbill Work Phone: [facility] Work Phone: 07-03-2022 15:02-0500 Body surface area Derived from formula 1.97 m2 Yamilex Esquivel Work Phone: [facility] Work Phone: 07-03-2022 15:02-0500 Body temperature 98.7 [degF] Yamilex Esquivel Work Phone: [facility] Work Phone: 07-03-2022 15:02-0500 Body weight 92.53 kg Yamilex Esquivel Work Phone: [facility] Work Phone: 07-03-2022 15:02-0500 Diastolic blood pressure 80 mm[Hg] Yamilex Esquivel Work Phone: [facility] Work Phone: 07-03-2022 15:02-0500 Heart rate 96 /min Yamilex Esquivel Work Phone: [facility] Work Phone: 07-03-2022 15:02-0500 SaO2% (BldA) [Mass fraction] 96 % Yamilex Esquivel Work Phone: [facility] Work Phone: 07-03-2022 15:02-0500 Systolic blood pressure 122 mm[Hg] Yamilex Esquivel Work Phone: [facility] Work Phone: 06-13-2022 15:08-0500 Body height 162.56 cm Yamilex Esquivel Work Phone: [address] Work Phone: 06-13-2022 15:08-0500 Body mass index (BMI) [Ratio] 35.23 kg/m2 Yamilex Esquivel Work Phone: [address] Work Phone: 06-13-2022 15:08-0500 Body surface area Derived from formula 1.98 m2 Yamilex Kimberly Newbill Work Phone: [facility] [place] [address] Work Phone: 06-13-2022 15:08-0500 Body weight 93.1 kg Yamilex Kimberly Newbill Work Phone: [place] [address] Work Phone: 06-13-2022 15:08-0500 Diastolic blood pressure 80 mm[Hg] Yamilex Kimberly Newbill Work Phone: [place] [address] Work Phone: 06-13-2022 15:08-0500 Systolic blood pressure 112 mm[Hg] Yamilex Kimberly Newbill Work Phone: [place] [address] Work Phone: 05-02-2022 13:30-0500 Diastolic blood pressure 60 mm[Hg] Yamilex Newbill Other Phone: [facility] 05-02-2022 13:30-0500 Heart rate 82 /min Yamilex Newbill Other Phone: [facility] 05-02-2022 13:30-0500 Respiratory rate 16 /min Yamilex Newbill Other Phone: [facility] 05-02-2022 13:30-0500 SaO2% (BldA) [Mass fraction] 98 % Yamilex Newbill Other Phone: [facility] 05-02-2022 13:30-0500 Systolic blood pressure 116 mm[Hg] Yamilex Newbill Other Phone: [facility] 05-02-2022 09:30-0500 Body height 162.5 cm Yamilex Newbill Other Phone: [facility] 05-02-2022 09:30-0500 Body temperature 97.88 [degF] Yamilex Esquivel Other Phone: [facility] 05-02-2022 09:30-0500 Body weight 90.9 kg Yamilex Esquivel Other Phone: [facility] 02-13-2022 15:16-0400 Body height 162.56 cm Yamilex Esquivel Work Phone: [facility] Work Phone: 02-13-2022 15:16-0400 Body mass index (BMI) [Ratio] 38.45 kg/m2 Yamilex Esquivel Work Phone: [facility] Work Phone: 02-13-2022 15:16-0400 Body surface area Derived from formula 2.05 m2 Yamilex Esquivel Work Phone: [facility] Work Phone: 02-13-2022 15:16-0400 Body temperature 98.37 [degF] Yamilex Esquivel Work Phone: [facility] Work Phone: 02-13-2022 15:16-0400 Body weight 101.61 kg Yamilex Esquivel Work Phone: [facility] Work Phone: 02-13-2022 15:16-0400 Diastolic blood pressure 76 mm[Hg] Yamilex Esquivel Work Phone: [facility] Work Phone: 02-13-2022 15:16-0400 Heart rate 98 /min Yamilex Esquivel Work Phone: [facility] Work Phone: 02-13-2022 15:16-0400 SaO2% (BldA) [Mass fraction] 98 % Yamilex Esquivel Work Phone: [facility] Work Phone: 02-13-2022 15:16-0400 Systolic blood pressure 118 mm[Hg] Yamilex Reyl Work Phone: [facility] Work Phone: 01-21-2022 09:33-0400 Body height 162.56 cm Yamilex Reyl Work Phone: [facility] Work Phone: 01-21-2022 09:33-0400 Body mass index (BMI) [Ratio] 38.5 kg/m2 Yamilex Esquivel Work Phone: [facility] Work Phone: 01-21-2022 09:33-0400 Body surface area Derived from formula 2.05 m2 Yamilex Esquivel Work Phone: [facility] Work Phone: 01-21-2022 09:33-0400 Body weight 101.74 kg Yamilex Esquivel Work Phone: [facility] Work Phone: 01-21-2022 09:33-0400 Diastolic blood pressure 77 mm[Hg] Yamilex Esquivel Work Phone: [facility] Work Phone: 01-21-2022 09:33-0400 Heart rate 94 /min Yamilex Esquivel Work Phone: [facility] Work Phone: 01-21-2022 09:33-0400 Systolic blood pressure 114 mm[Hg] Yamilex Reyl Work Phone: [facility] Work Phone: 01-02-2022 10:58-0400 Body height 162.56 cm Yamilex Esquivel Work Phone: [facility] Work Phone: 01-02-2022 10:58-0400 Body mass index (BMI) [Ratio] 37.08 kg/m2 Yamilex Esquivel Work Phone: [facility] Work Phone: 01-02-2022 10:58-0400 Body surface area Derived from formula 2.02 m2 Yamilex Rey Work Phone: [facility] Work Phone: 01-02-2022 10:58-0400 Body temperature 97.7 [degF] Yamilex Esquivel Work Phone: [facility] Work Phone: 01-02-2022 10:58-0400 Body weight 97.98 kg Yamilex Esquivel Work Phone: [facility] Work Phone: 01-02-2022 10:58-0400 Diastolic blood pressure 84 mm[Hg] Yamilex Rey Work Phone: [facility] Work Phone: 01-02-2022 10:58-0400 Heart rate 80 /min Yamilex M Krissy Work Phone: [facility] Work Phone: 01-02-2022 10:58-0400 Respiratory rate 18 /min [facility] Krissy Work Phone: [facility] Work Phone: 01-02-2022 10:58-0400 SaO2% (BldA) [Mass fraction] 98 % Yamilex Rey Work Phone: [facility] Work Phone: 01-02-2022 [id number] Systolic blood pressure 135 mm[Hg] Yamilex Esquivel Work Phone: [facility] Work Phone: [id number] 4 1 Yamilex Esquivel Work Phone: [facility] Work Phone: Encounters Encounter Date Encounter Type Care Provider Facility Start: 12-17-2022 End: 12-17-2022 ambulatory MD [facility] Start: 10-02-2022 End: 10-02-2022 ambulatory [facility] Start: 10-02-2022 End: 10-02-2022 Office outpatient visit 25 minutes Yamilex Kimberly Alvin PA-C Work Phone: [facility] Procedures Date Procedure Procedure Detail Performing Clinician Start: 05-02-2022 End: 05-02-2022 EKG impression Doc Rivero Start: 03-19-2021 Echocardiography Yamilex Reykorin Work Phone: Start: 03-16-2021 End: 03-16-2021 EKG impression Sussy Bilderback Start: 03-16-2021 End: 03-16-2021 EKG impression Sussy Bilderback Start: 03-16-2021 Thyrotropin [Units/v olume] in Serum or Plasma Yamilex Xiongbill PA-C Work Phone: Start: 11-02-2020 Lipid 1995 panel - S lilly or Plasma Yamilex Xiongbill PA-C Work Phone: Start: 11-28-2016 End: 11-28-2016 Urinalysis Malina Bernal Start: 11-28-2016 End: 11-28-2016 Urinalysis nonauto w/o scope Malina castaneda MD Work Phone: Excision of bunion Yamilex Harris Ne wbfernando Work Phone: Extraction of wisdom tooth S valeriy Harris Tyreseerickkorin Work Phone: Plan of Treatment Date Care Activity Detail Author Start: 2046 Zoster Vaccines (1 o f 2) Zoster Vaccines (1 of 2) [facility] Start: 01-10-2026 DTaP/Tdap/Td Vaccine s (7 - Td or Tdap) DTaP/Tdap/Td Vaccines (7 - Td or Tdap) [facility] Start: 11-02-2025 Lipid panel Lipid Panel [facility] Start: 01-03-2023 Influenza vaccination Influenz a Vaccine (Season Ended) [facility] Start: 01-02-2023 End: 10-03-2023 TSH with reflex to Free T4 if abnormal TSH with reflex to Free T4 if abnormal Lab Routine Hypothyroidism, unspecified type Expected: 01/02/2023 (Approximate), Expires: 10/03/2023 [facility] Service Area Work Phone: Immunizations Immunization Date Immunization Notes Care Provider Fa cili 02-23-2019 influenza, injectabl e, quadrivalent, preservative free Yamilex Esquivel Work Phone: [facility] Work Phone: 02-23-2019 influenza virus vaccine, unspecified formulation Yamilex Esquivel PA-C Work Phone: [facility] Work Phone: 01-11-2016 tetanus toxoid, redu susy diphtheria toxoid, and acellular pertussis vaccine, adsorbed Yamilex Esquivel Work Phone: [facility] Work Phone: 03-07-2010 hepatitis A vaccine, pediatric/adolescent dosage, 2 dose schedule Yamilex Esquivel Work Phone: [facility] Work Phone: 03-07-2010 varicella virus vaccine Yamilex Esquivel Work Phone: [facility] Work Phone: 03-07-2010 hepatitis A and hepatitis B vaccine Yamilex Esquivel PA-C Work Phone: [facility] Work Phone: 08-01-2008 influenza virus vaccine, whole virus Yamilex Esquivel Work Phone: [facility] Work Phone: 08-01-2008 meningococcal ACWY vaccine, unspecified formulation Yamilex Esquivel Work Phone: [facility] Work Phone: 08-01-2008 tetanus toxoid, redu susy diphtheria toxoid, and acellular pertussis vaccine, adsorbed Yamilex Esquivel Work Phone: [facility] Work Phone: 08-28-2001 diphtheria, tetanus toxoids and pertussis vaccine Yamilex Esquivel Work Phone: [facility] Work Phone: 08-28-2001 measles, mumps and rubella virus vaccine Yamilex Esquivel Work Phone: [facility] Work Phone: 08-28-2001 poliovirus vaccine, unspecified formulation Yamilex Esquivel Work Phone: [facility] Work Phone: 08-31-1997 measles, mumps and rubella virus vaccine Yamilex Esquivel Work Phone: [facility] Work Phone: 08-31-1997 poliovirus vaccine, unspecified formulation Yamilex Esquivel Work Phone: [facility] Work Phone: 08-31-1997 varicella virus vaccine Yamilex Esquivel Work Phone: [facility] Work Phone: 03-10-1997 diphtheria, tetanus toxoids and pertussis vaccine Yamilex Reyl Work Phone: [facility] Work Phone: 03-10-1997 haemophilus influenz ae type b vaccine, conjugate unspecified formulation Yamilex Kimberly Newbill Work Phone: [facility] Work Phone: 03-10-1997 hepatitis B vaccine, pediatric or pediatric/adolescent dosage Yamilex M Newbill Work Phone: [facility] Work Phone: 1996 diphtheria, tetanus toxoids and pertussis vaccine Yamilex Kimberly Newbill Work Phone: [facility] Work Phone: 1996 haemophilus influenz ae type b vaccine, conjugate unspecified formulation Yamilex M Newbill Work Phone: [facility] Work Phone: 1996 poliovirus vaccine, unspecified formulation Yamilex M Newbill Work Phone: [facility] Work Phone: 1996 hepatitis B vaccine, pediatric or pediatric/adolescent dosage Yamilex M Newbill Work Phone: [facility] Work Phone: 1996 diphtheria, tetanus toxoids and pertussis vaccine Yamilex Kimberly Newbill Work Phone: [facility] Work Phone: 1996 haemophilus influenz ae type b vaccine, conjugate unspecified formulation Yamilex M Newbill Work Phone: [facility] Work Phone: 1996 hepatitis B vaccine, pediatric or pediatric/adolescent dosage Yamilex M Newbill Work Phone: [facility] Work Phone: 1996 poliovirus vaccine, unspecified formulation Yamilex M Newbill Work Phone: [facility] Work Phone: 1996 diphtheria, tetanus toxoids and pertussis vaccine Yamilex Esquivel Work Phone: [facility] Work Phone: 1996 haemophilus influenz ae type b vaccine, conjugate unspecified formulation Yamilex Esquivel Work Phone: [facility] Work Phone: Payers Date Payer Category Payer Unknown 2022 Unknown [id number] 1995 Unknown [id number] 1996 Unknown [id number] 2.16.8 [id number] 1996 Unknown [id number] 2.16.8 [id number] 1996 Unknown [id number] 2.16. [id number] 1996 Unknown [id number] 2.16. [id number] 1996 Unknown [id number] 2.16. [id number] 1996 Unknown [id number] 2.16. [id number] 1996 Unknown [id number] 2.16. [id number] 1996 Unknown [id number] 2.16. [id number] 1996 Unknown [id number] 2.16. [id number] 1996 Unknown [id number] 2.16. [id number] 1996 Unknown [id number] 2.16. [id number] 1996 Unknown [id number] 2.16. [id number] Unknown [id number] 2. [id number] Medicaid [id number] 2.1 [id number] Unknown [id number] Social History Date Type Detail Facility Start: 12-11-2016 Tobacco smoking stat [facility] Never smoker [facility] Work Phone: Start: 1995 Sex Assigned At Not on file [facility] Work Phone: Start: 10-02-2022 Daily caffeine consumption Daily caffeine consumption [facility] Work Phone: Functional Status Date Assessment Result Facility 09-02-2021 [facility] Status [facility] Mental Status Date Assessment Result Facility 09-02-2021 Mental Status [facility] 02-03-2020 to 10-02-2022 Yamilex Esquivel PA-C - 10/02/2022 2:10 PM EDT Note Date & Type Note Facility 10-02-2022 History of Present illness Narrative Subjective Patient ID: Lachelle Urena is a 27 y.o. female who presents for Insect Bite (? Insect bite behind right thigh with discomfort x 2 days, denies itching. X 2 days Patient is 8 weeks .). HPI Patient presents for evaluation of right leg skin irritation. Patient reports 2 days of progressively worsening erythema and irritation on the posterior aspect of the right thigh without known precipitating event. Patient did not see an insect or suffer trauma. The patient was able to express purulent fluid from the center of the wound. No attempted conservative management as the patient is 8 weeks . No other complaints. Review of Systems Constitutional: See HPI Integumentary: See HPI Neurologic: Alert and oriented X4, No numbness, No tingling. All other systems are negative Objective BP 107/76 (BP Location: Left arm, Patient Position: Sitting, BP Cuff Size: Adult) Pulse (!) 112 Temp 36.8 C (98.2 F) Ht 1.626 m (5' 4 ) Wt 86.9 kg (191 lb 9.6 oz) BMI 32.89 kg/m Physical Exam General: Alert and oriented, No acute distress. Eye: Pupils are equal, round and reactive to light, Normal conjunctiva. HENT: Normocephalic, Neck: Supple Respiratory: Respirations are non-labored Musculoskeletal: Normal ROM and strength Integumentary: Right posterior thigh with a 3 cm diameter area of erythema with central induration and small central wound; the erythematous area is blanchable Neurologic: Alert, Oriented, Normal sensory, Cranial Nerves II-XII are grossly intact Psychiatric: Cooperative, Appropriate mood & affect. Assessment/Plan Infected insect bite of right leg: Patient is so no oral steroids. Prescription for Keflex 1 week. Hypothyroidism: Patient has not obtained TSH in some time. Another 1 was ordered for the end of December. Follow-up as needed Problem List Items Addressed This Visit Hypothyroidism Relevant Orders TSH with reflex to Free T4 if abnormal Other Visit Diagnoses Infected insect bite of right lower extremity, initial encounter - Primary Relevant Medications cephalexin (Keflex) 500 mg capsule Final diagnoses: [S80.861A, L08.9, W57.XXXA] Infected insect bite of right lower extremity, initial encounter [E03.9] Hypothyroidism, unspecified type documented in this encounter [facility] Work Phone: 08-01-2022 Note 44 Date of Procedure: 08/01/2022 Pathologist: [facility], Cytology Date Reported: 08/06/2022 Date Received: 08/02/2022 Submitting Physician: BRENDA APPIAH CNM POLYMERIZATION HELPER FINAL CYTOLOGICAL INTERPRETATION A. THINPREP PAP CERVICAL: Specimen adequacy: SATISFACTORY FOR EVALUATION. Quality Indicator: Endocervical/transformation zone component is present. General Categorization: NEGATIVE FOR INTRAEPITHELIAL LESION OR MALIGNANCY. Descriptive Interpretation: SHIFT IN VAGINAL JACKLYN SUGGESTIVE OF BACTERIAL VAGINOSIS. Ancillary Testing: Specimen does not meet the requisition-stated criteria for HPV testing. See Pap test interpretation above. This specimen has been analyzed by the GeneixPrep Imaging System ([employer] an automated imaging and review system, which assists the laboratory in evaluating cells on ThinPrep Pap tests. Following automated imaging, selected courtney from every slide were reviewed by a math instructor and/or pathologist. Electronically Signed Out By [facility], Cytology//IK By the signature on this report, the individual or group listed as making the Final Interpretation/Diagnosis certifies that they have reviewed this case. Diagnostic interpretation performed at [place] [id number] Educational Note: Cervical cytology is a screening procedure primarily for squamous cancers and precursors and has associated false-negative and false-positive results as evidenced by published data. Your patient?s test should be interpreted in this context, together with patient?s history and clinical findings. Regular sampling and follow-up of unexplained clinical signs and symptoms are recommended to minimize false negative results. Clinical History Date of Last Menstrual Period: 07/07/2022 Other Clinical Conditions: HPV Reflex for ASC-US only - Include HPV Genotype Annual Clinical Diagnosis History: Encounter for Papanicolaou smear of cervix - (Z12.4); Pap test, as part of routine gynecological examination - (Z01.419) Source of Specimen A: THINPREP PAP CERVICAL [facility] Department of Pathology [id number] documented in this encounter [facility] Work Phone: History of Present illness NarrativePatient presents in follow-up of anxiety, depression, insomnia. Patient reports fairly good resultswith low-dose fluoxetine but is still battling anxiety and thinks that increased dose will help further. Patient continues with 15 mg 3 times daily. Patient states hydroxyzine side effectsare intolerable. Patient also reports there is more less widespread pain and tension that is contributing to the insomnia. This has been going on for some time but patient just mentioned it for the first time.[facility] Work Phone: History of Present illness NarrativePt. presents for IUD removal. Has annual exam scheduled for April of this year. Plans condoms ininterim and will discuss other options at that visit. Pt. denies any other complaints or concernsW[address] Work Phone: History of Present illness NarrativePt. presents for IUD removal. Has annual exam scheduled for April this year. Plans condoms ininterim and will discuss other options at that visit. Pt. denies any other complaints or concernsW[address] Work Phone: History of Present illness NarrativePatient presents for evaluation of intermittent abdominal pain, change in bowel pattern, and even change in bowel color. Patient reports approximately 3 weeks of intermittent cramping the left upper quadrant, consistent black pepper in the stool, and nausea. Patient also reports bilateral lower quadrant abdominal cramping/pain that alternates left to right and is consistent with prior physiological ovarian cysts. No vomiting, bright red blood per rectum, fever, or other constitutional signs and symptoms. Patient stopped drinking alcohol, stopped taking vitamins and other supplements to try to rule out these as the cause. No real change noted.[facility] Work Phone: Hisstmu of Present illness Narrative* Patient presents for work physical. Patient has no acute complaints. * Patient is requesting refills of 2 medicines. Patient refill on levothyroxine but is also asking for an increase in BuSpar. Patient currently taking 2 15 mg tablets and is asking for increase to 3. [facility] Work Phone: History of Present illness NarrativePresents for evaluation of URI. Symptoms including cough, fever, congestion, body aches, malaise, and headache have been present for 2 days and refractory to OTC meds. No chills, nausea, vomiting, abdominal pain, CP, or SOB. No exacerbating factors. Patient has had COVID at least once, possibly twice, and is not vaccinated.[facility] Work Phone: History of Present illness NarrativePatient presents in 6-month follow-up of anxiety and depression, hypothyroidism, and panic attacks.Patient reports significant improvement in overall wellbeing after having quit drinking alcohol andquit smoking. Patient is now working full-time and states that the BuSpar is almost not necessary. Prozac does very well managing current anxiety and depression. Patient has not had a panic attack in some time. Currently, the patient is only taking Prozac 20 mg daily, levothyroxine 88 mcg, and buspirone.[facility] Work Phone: History of Present illness NarrativePatient presents stating that she noticed a burning sensation and some cramping recently. She states that her last 2 menstrual flows have not been normal. The one flow lasted 10 days but was just spotting for most of that time and the other flow was late by about a week. She did have an episode of spotting following intercourse which was of a brownish discharge. She has been with the same partner. She has had a change in working which she is now working the third shift for the last 2 to 3 months. Denies any steroid use or any unusual stress lately. She is using condoms for contraception.[facility] [employer] Work Phone: History of Present illness Narrative* Pt. presents for annual exam. Seen recently for irregular bleeding, still wanting to wait to see whether it resolves itself. * Hx of HPV on pap, due for pap today * Planning wedding in [place] * No other c/o or concerns [place] [employer] Work Phone: progress note No data available for this section [facility] Assessments Diagnosis Acute pain of right knee - P rimary Summary Purpose Family History No Family History Records FoundUnknown Family Member Name Dates Details Family history of hypertensi on: Mother(V17.49, Z82.49) Status:Active Family history of diabetes m ellitus: Mother(V18.0, Z83.3) Status:Active Family history of thyroid di sease: Mother(V18.19, Z83.49) Status:Active Family history of malignant neoplasm: Mother(V16.9, Z80.9) Status:Active Unknown Family Member Name Dates Details Family history of hypertensi on: Mother(V17.49, Z82.49) Status:Active Family history of diabetes m ellitus: Mother(V18.0, Z83.3) Status:Active Family history of thyroid di sease: Mother(V18.19, Z83.49) Status:Active Family history of malignant neoplasm: Mother(V16.9, Z80.9) Status:Active Unknown Family Member Name Dates Details Family history of hypertensi on: Mother(V17.49, Z82.49) Status:Active Family history of diabetes m ellitus: Mother(V18.0, Z83.3) Status:Active Family history of thyroid di sease: Mother(V18.19, Z83.49) Status:Active Family history of malignant neoplasm: Mother(V16.9, Z80.9) Status:Active Unknown Family Member Name Dates Details Family history of hypertensi on: Mother(V17.49, Z82.49) Status:Active Family history of diabetes m ellitus: Mother(V18.0, Z83.3) Status:Active Family history of thyroid di sease: Mother(V18.19, Z83.49) Status:Active Family history of malignant neoplasm: Mother(V16.9, Z80.9) Status:Active Unknown Family Member Name Dates Details Family history of hypertensi on: Mother(V17.49, Z82.49) Status:Active Family history of diabetes m ellitus: Mother(V18.0, Z83.3) Status:Active Family history of thyroid di sease: Mother(V18.19, Z83.49) Status:Active Family history of malignant neoplasm: Mother(V16.9, Z80.9) Status:Active Unknown Family Member Name Dates Details Family history of hypertensi on: Mother(V17.49, Z82.49) Status:Active Family history of diabetes m ellitus: Mother(V18.0, Z83.3) Status:Active Family history of thyroid di sease: Mother(V18.19, Z83.49) Status:Active Family history of malignant neoplasm: Mother(V16.9, Z80.9) Status:Active Unknown Family Member Name Dates Details Family history of hypertensi on: Mother(V17.49, Z82.49) Status:Active Family history of diabetes m ellitus: Mother(V18.0, Z83.3) Status:Active Family history of thyroid di sease: Mother(V18.19, Z83.49) Status:Active Family history of malignant neoplasm: Mother(V16.9, Z80.9) Status:Active Unknown Family Member Name Dates Details Family history of hypertensi on: Mother(V17.49, Z82.49) Status:Active Family history of diabetes m ellitus: Mother(V18.0, Z83.3) Status:Active Family history of thyroid di sease: Mother(V18.19, Z83.49) Status:Active Family history of malignant neoplasm: Mother(V16.9, Z80.9) Status:Active Family history of factor V L eiden mutation: Father(V18.3, Z83.2) Status:Active Unknown Family Member Name Dates Details Family history of hypertensi on: Mother(V17.49, Z82.49) Status:Active Family history of diabetes m ellitus: Mother(V18.0, Z83.3) Status:Active Family history of thyroid di sease: Mother(V18.19, Z83.49) Status:Active Family history of malignant neoplasm: Mother(V16.9, Z80.9) Status:Active Family history of factor V L eiden mutation: Father(V18.3, Z83.2) Status:Active Unknown Family Member Name Dates Details Family history of hypertensi on: Mother(V17.49, Z82.49) Status:Active Family history of diabetes m ellitus: Mother(V18.0, Z83.3) Status:Active Family history of thyroid di sease: Mother(V18.19, Z83.49) Status:Active Family history of malignant neoplasm: Mother(V16.9, Z80.9) Status:Active Family history of factor V L eiden mutation: Father(V18.3, Z83.2) Status:Active Unknown Family Member Name Dates Details Family history of hypertensi on: Mother(V17.49, Z82.49) Status:Active Family history of diabetes m ellitus: Mother(V18.0, Z83.3) Status:Active Family history of thyroid di sease: Mother(V18.19, Z83.49) Status:Active Family history of malignant neoplasm: Mother(V16.9, Z80.9) Status:Active Family history of factor V L eiden mutation: Father(V18.3, Z83.2) Status:Active Unknown Family Member Name Dates Details Family history of malignant neoplasm: Mother(V16.9, Z80.9) Status:Active Family history of thyroid di sease: Mother(V18.19, Z83.49) Status:Active Family history of diabetes m ellitus: Mother(V18.0, Z83.3) Status:Active Family history of hypertensi on: Mother(V17.49, Z82.49) Status:Active Family history of factor V L eiden mutation: Father(V18.3, Z83.2) Status:Active Unknown Family Member Name Dates Details Family history of hypertensi on: Mother(V17.49, Z82.49) Status:Active Family history of diabetes m ellitus: Mother(V18.0, Z83.3) Status:Active Family history of thyroid di sease: Mother(V18.19, Z83.49) Status:Active Family history of malignant neoplasm: Mother(V16.9, Z80.9) Status:Active Family history of factor V L eiden mutation: Father(V18.3, Z83.2) Status:Active Unknown Family Member Name Dates Details Family history of hypertensi on: Mother(V17.49, Z82.49) Status:Active Family history of diabetes m ellitus: Mother(V18.0, Z83.3) Status:Active Family history of thyroid di sease: Mother(V18.19, Z83.49) Status:Active Family history of malignant neoplasm: Mother(V16.9, Z80.9) Status:Active Family history of factor V L eiden mutation: Father(V18.3, Z83.2) Status:Active Unknown Family Member Name Dates Details Family history of hypertensi on: Mother(V17.49, Z82.49) Status:Active Family history of diabetes m ellitus: Mother(V18.0, Z83.3) Status:Active Family history of thyroid di sease: Mother(V18.19, Z83.49) Status:Active Family history of malignant neoplasm: Mother(V16.9, Z80.9) Status:Active Family history of factor V L eiden mutation: Father(V18.3, Z83.2) Status:Active Unknown Family Member Name Dates Details Family history of hypertensi on: Mother(V17.49, Z82.49) Status:Active Family history of diabetes m ellitus: Mother(V18.0, Z83.3) Status:Active Family history of thyroid di sease: Mother(V18.19, Z83.49) Status:Active Family history of malignant neoplasm: Mother(V16.9, Z80.9) Status:Active Family history of factor V L eiden mutation: Father(V18.3, Z83.2) Status:Active Unknown Family Member Name Dates Details Family history of hypertensi on: Mother(V17.49, Z82.49) Status:Active Family history of diabetes m ellitus: Mother(V18.0, Z83.3) Status:Active Family history of thyroid di sease: Mother(V18.19, Z83.49) Status:Active Family history of malignant neoplasm: Mother(V16.9, Z80.9) Status:Active Family history of factor V L eiden mutation: Father(V18.3, Z83.2) Status:Active Unknown Family Member Name Dates Details Family history of hypertensi on: Mother(V17.49, Z82.49) Status:Active Family history of diabetes m ellitus: Mother(V18.0, Z83.3) Status:Active Family history of thyroid di sease: Mother(V18.19, Z83.49) Status:Active Family history of malignant neoplasm: Mother(V16.9, Z80.9) Status:Active Family history of factor V L eiden mutation: Father(V18.3, Z83.2) Status:Active Unknown Family Member Name Dates Details Family history of hypertensi on: Mother(V17.49, Z82.49) Status:Active Family history of diabetes m ellitus: Mother(V18.0, Z83.3) Status:Active Family history of thyroid di sease: Mother(V18.19, Z83.49) Status:Active Family history of malignant neoplasm: Mother(V16.9, Z80.9) Status:Active Family history of factor V L eiden mutation: Father(V18.3, Z83.2) Status:Active Unknown Family Member Name Dates Details Family history of hypertensi on: Mother(V17.49, Z82.49) Status:Active Family history of diabetes m ellitus: Mother(V18.0, Z83.3) Status:Active Family history of thyroid di sease: Mother(V18.19, Z83.49) Status:Active Family history of malignant neoplasm: Mother(V16.9, Z80.9) Status:Active Family history of factor V L eiden mutation: Father(V18.3, Z83.2) Status:Active Unknown Family Member Name Dates Details Family history of hypertensi on: Mother(V17.49, Z82.49) Status:Active Family history of diabetes m ellitus: Mother(V18.0, Z83.3) Status:Active Family history of thyroid di sease: Mother(V18.19, Z83.49) Status:Active Family history of malignant neoplasm: Mother(V16.9, Z80.9) Status:Active Family history of factor V L eiden mutation: Father(V18.3, Z83.2) Status:Active Unknown Family Member Name Dates Details Family history of hypertensi on: Mother(V17.49, Z82.49) Status:Active Family history of diabetes m ellitus: Mother(V18.0, Z83.3) Status:Active Family history of thyroid di sease: Mother(V18.19, Z83.49) Status:Active Family history of malignant neoplasm: Mother(V16.9, Z80.9) Status:Active Family history of factor V L eiden mutation: Father(V18.3, Z83.2) Status:Active Unknown Family Member Name Dates Details Family history of hypertensi on: Mother(V17.49, Z82.49) Status:Active Family history of diabetes m ellitus: Mother(V18.0, Z83.3) Status:Active Family history of thyroid di sease: Mother(V18.19, Z83.49) Status:Active Family history of malignant neoplasm: Mother(V16.9, Z80.9) Status:Active Family history of factor V L eiden mutation: Father(V18.3, Z83.2) Status:Active Unknown Family Member Name Dates Details Family history of hypertensi on: Mother(V17.49, Z82.49) Status:Active Family history of diabetes m ellitus: Mother(V18.0, Z83.3) Status:Active Family history of thyroid di sease: Mother(V18.19, Z83.49) Status:Active Family history of malignant neoplasm: Mother(V16.9, Z80.9) Status:Active Family history of factor V L eiden mutation: Father(V18.3, Z83.2) Status:Active Family history of malignant neoplasm of kidney: Mother(V16.51, Z80.51) Status:Active Unknown Family Member Name Dates Details Family history of hypertensi on: Mother(V17.49, Z82.49) Status:Active Family history of diabetes m ellitus: Mother(V18.0, Z83.3) Status:Active Family history of thyroid di sease: Mother(V18.19, Z83.49) Status:Active Family history of malignant neoplasm: Mother(V16.9, Z80.9) Status:Active Family history of factor V L eiden mutation: Father(V18.3, Z83.2) Status:Active Family history of malignant neoplasm of kidney: Mother(V16.51, Z80.51) Status:Active Unknown Family Member Name Dates Details Family history of hypertensi on: Mother(V17.49, Z82.49) Status:Active Family history of diabetes m ellitus: Mother(V18.0, Z83.3) Status:Active Family history of thyroid di sease: Mother(V18.19, Z83.49) Status:Active Family history of malignant neoplasm: Mother(V16.9, Z80.9) Status:Active Family history of factor V L eiden mutation: Father(V18.3, Z83.2) Status:Active Family history of malignant neoplasm of kidney: Mother(V16.51, Z80.51) Status:Active Unknown Family Member Name Dates Details Family history of hypertensi on: Mother(V17.49, Z82.49) Status:Active Family history of diabetes m ellitus: Mother(V18.0, Z83.3) Status:Active Family history of thyroid di sease: Mother(V18.19, Z83.49) Status:Active Family history of malignant neoplasm: Mother(V16.9, Z80.9) Status:Active Family history of factor V L eiden mutation: Father(V18.3, Z83.2) Status:Active Family history of malignant neoplasm of kidney: Mother(V16.51, Z80.51) Status:Active Unknown Family Member Name Dates Details Family history of hypertensi on: Mother(V17.49, Z82.49) Status:Active Family history of diabetes m ellitus: Mother(V18.0, Z83.3) Status:Active Family history of thyroid di sease: Mother(V18.19, Z83.49) Status:Active Family history of malignant neoplasm: Mother(V16.9, Z80.9) Status:Active Family history of factor V L eiden mutation: Father(V18.3, Z83.2) Status:Active Family history of malignant neoplasm of kidney: Mother(V16.51, Z80.51) Status:Active Unknown Family Member Name Dates Details Family history of hypertensi on: Mother(V17.49, Z82.49) Status:Active Family history of diabetes m ellitus: Mother(V18.0, Z83.3) Status:Active Family history of thyroid di sease: Mother(V18.19, Z83.49) Status:Active Family history of malignant neoplasm: Mother(V16.9, Z80.9) Status:Active Family history of factor V L eiden mutation: Father(V18.3, Z83.2) Status:Active Family history of malignant neoplasm of kidney: Mother(V16.51, Z80.51) Status:Active Unknown Family Member Name Dates Details Family history of hypertensi on: Mother(V17.49, Z82.49) Status:Active Family history of diabetes m ellitus: Mother(V18.0, Z83.3) Status:Active Family history of thyroid di sease: Mother(V18.19, Z83.49) Status:Active Family history of malignant neoplasm: Mother(V16.9, Z80.9) Status:Active Family history of factor V L eiden mutation: Father(V18.3, Z83.2) Status:Active Family history of malignant neoplasm of kidney: Mother(V16.51, Z80.51) Status:Active Unknown Family Member Name Dates Details Family history of hypertensi on: Mother(V17.49, Z82.49) Status:Active Family history of diabetes m ellitus: Mother(V18.0, Z83.3) Status:Active Family history of thyroid di sease: Mother(V18.19, Z83.49) Status:Active Family history of malignant neoplasm: Mother(V16.9, Z80.9) Status:Active Family history of factor V L eiden mutation: Father(V18.3, Z83.2) Status:Active Family history of malignant neoplasm of kidney: Mother(V16.51, Z80.51) Status:Active Unknown Family Member Name Dates Details Family history of hypertensi on: Mother(V17.49, Z82.49) Status:Active Family history of diabetes m ellitus: Mother(V18.0, Z83.3) Status:Active Family history of thyroid di sease: Mother(V18.19, Z83.49) Status:Active Family history of malignant neoplasm: Mother(V16.9, Z80.9) Status:Active Family history of factor V L eiden mutation: Father(V18.3, Z83.2) Status:Active Family history of malignant neoplasm of kidney: Mother(V16.51, Z80.51) Status:Active Unknown Family Member Name Dates Details Family history of hypertensi on: Mother(V17.49, Z82.49) Status:Active Family history of diabetes m ellitus: Mother(V18.0, Z83.3) Status:Active Family history of thyroid di sease: Mother(V18.19, Z83.49) Status:Active Family history of malignant neoplasm: Mother(V16.9, Z80.9) Status:Active Family history of factor V L eiden mutation: Father(V18.3, Z83.2) Status:Active Family history of malignant neoplasm of kidney: Mother(V16.51, Z80.51) Status:Active Unknown Family Member Name Dates Details Family history of hypertensi on: Mother(V17.49, Z82.49) Status:Active Family history of diabetes m ellitus: Mother(V18.0, Z83.3) Status:Active Family history of thyroid di sease: Mother(V18.19, Z83.49) Status:Active Family history of malignant neoplasm: Mother(V16.9, Z80.9) Status:Active Family history of factor V L eiden mutation: Father(V18.3, Z83.2) Status:Active Family history of malignant neoplasm of kidney: Mother(V16.51, Z80.51) Status:Active Unknown Family Member Name Dates Details Family history of hypertensi on: Mother(V17.49, Z82.49) Status:Active Family history of diabetes m ellitus: Mother(V18.0, Z83.3) Status:Active Family history of thyroid di sease: Mother(V18.19, Z83.49) Status:Active Family history of malignant neoplasm: Mother(V16.9, Z80.9) Status:Active Family history of factor V L eiden mutation: Father(V18.3, Z83.2) Status:Active Family history of malignant neoplasm of kidney: Mother(V16.51, Z80.51) Status:Active Advance Directives No Advanced Directives Records FoundNo Advanced Directives Records FoundNo Advanced Directives Records FoundNo Advanced Directives Records FoundNo Advanced Directives Records FoundNo Advanced Directives Records FoundNo Advanced Directives Records FoundNo Advanced Directives Records FoundNo Advanced Directives Records Found Chief Complaint * NEW PT HERE TO [facility]. * PT STATES SHE BELIEVES SHE HAS A STOMACH ULCER X 1 MTH. * PT STATES SHE HAS HAD HORRIBLE HEARTBURN SINCE HAVING COVID. * REQUESTING TSH LAB ORDER. * Patient here today to be seen for ? increased heart rate. * Patient states she was seen Friday at the [facility] in [place] for UTI. Patient prescribed Macrobid. * Patient states she was advised to follow up with her PCP for increased HR. * Patient has been having SOB with light headedness x 3 days and thought it maybe anxiety. TachycardiaTachycardiaPFO* Patient here today for follow up 1 month. Patient states Sertraline is helping with the depression. * Patient offers no complaints at this time. * 25 y/o female presents for stomach issues * Medication proposed * Pt states she use to take Carafate * Does note that this was talked about before and could be related to her gallbladder * Pt reports symptoms of sharp pain in her mid abdomen that radiates into her back * Sometimes the pain is dull, but other times is unbearable * She reports pulsating/squeezing sensation, along with a feeling of something swelling inside * Mild nausea along with yellow stools * Pt does report symptoms seem to worsen at night * She does notice more issues when she has an alcoholic beverage * Patient here today to be seen for ? UTI. Patient is having increased frequency , foul urine odor and flank discomfort x 4 days. Patient states she has also been noticing some nausea & dizziness. * Patient states she did discontinue the Sertraline and states it was not working for her. Patient here today for follow up 1 month appt. Patient states not taking the Hydroxyzine as it makes her feel sleepy during the day, like she is hung over. Patient states feels like the Fluoxetine ishelping and feels a little more level. Patient has cut down on her smoking from a 1 pack of cigarettes daily to 2-3 cigarettes daily.PT HERE TODAY WANTING HER IUD REMOVED. PT STATES SHE IS GOING ON 5 YEARS WITH THE IUD. PT IS Starting TO EXPERIENCE CRAMPS. PT MAYBE WANTS TO TAKE A BREAK FROM CONTROL, BUT IS INTERESTED IN THENUVA RING IN THE FUTURE.PT HERE TODAY WANTING HER IUD REMOVED. PT STATES SHE IS GOING ON 5 YEARS WITH THE IUD. PT IS Starting TO EXPERIENCE CRAMPS. PT MAYBE WANTS TO TAKE A BREAK FROM CONTROL, BUT IS INTERESTED IN THENUVA RING IN THE FUTURE.* STOMACH ISSUES * STARTED 3 WKS AGO * BOWEL SOUNDS ACTIVE A 4 QUADRANTS * BM CHANGED, DARK FLAKES IN STOOL, NO BLOOD Patient her today for a work physical. Patient offers no complaints at this time.Patient her today for a work physical. Patient offers no complaints at this time.* Patient here today to be seen for sinus pressure, sinus headache, sore throat, fatigue, body aches,increased temp of 102.0 yesterday and today 99.0, having symptoms since yesterday. * Patient took home kit Covid test yesterday with negative result. PT HERE TODAY WITH CONCERNS OF IRREGULAR BLEEDING, AND CRAMPING. PT STATES HER PERIODS ARE USUALLY REGULAR, BUT THIS LAST PERIOD LASTED 9 DAYS. PT STATES SHE WAS BLEEDING SUPER HEAVY, AND PASSED SOMEBLOOD CLOTS. PT ALSO STATES SHE GOT VERY DIZZY, LIGHT HEADED, AND HAD LEFT LOWER ABDOMINAL PAIN. PTHAD HER IUD REMOVED THE END OF NOVEMBER AND HAS NOT BEEN ON ANY CONTROL SINCE. LMP 06/02/22EST PT HERE FOR 6 MTH FUV. PT DENIES ANY CONCERNS.PT HERE TODAY C/O CRAMPING AND BURNING SENSATION. PT STATES HER LAST TWO PERIODS HAVE BEEN OFF. PT STATES HER PERIODS ARE TYPICALLY NORMAL BUT HER LAST PERIOD LASTED 5 DAYS. PT HAD INTERCOURSE THE FOLLOWING AND HAD SOME SPOTTING, AND THEN BROWN DISCHARGE A COUPLE DAYS AFTER. 07/07/22Patient is here for her yearly exam and pap test. LMP: 07/07/2022. Patient does not do regular selfbreast exams and has no concerns at this time. Reason for Referral * [employer] Additional Source Comments INFORMATION SOURCE (unrecogn ized section and content) DATE CREATED AUTHOR AUTHOR'S ORGANIZ ATION 10/29/2017 [facility] DATE CREATED AUTHOR AUTHOR'S ORGANIZ ATION 10/29/2017 [facility] DATE CREATED AUTHOR AUTHOR'S ORGANIZ ATION 10/01/2018 [facility] DATE CREATED AUTHOR AUTHOR'S ORGANIZ ATION 08/06/2022 [employer] DATE CREATED AUTHOR AUTHOR'S ORGANIZ ATION 10/13/2022 [facility] DATE CREATED AUTHOR AUTHOR'S ORGANIZ ATION 12/23/2022 [facility] DATE CREATED AUTHOR AUTHOR'S ORGANIZ ATION 01/11/2023 [facility] DATE CREATED AUTHOR AUTHOR'S ORGANIZ ATION 04/14/2023 [facility] <item><item> Privacy Markings (unrecogniz ed section and content) Section Author: Serena Stevenson PROHIBITION ON REDISCLOSURE OF CONFIDENTIAL INFORMATION This notice accompanies a disclosure of information concerning a client made to you with the consent of such client. Section Author: Serena Stevenson PROHIBITION ON REDISCLOSURE OF CONFIDENTIAL INFORMATION This notice accompanies a disclosure of information concerning a client made to you with the consent of such client. Care Team (unrecognized sect ion and content) Reason for Visit (unrecogniz ed section and content) FOR RECORDS PERTAINING TO PATIENTS WHO ARE OR HAVE BEEN ENROLLED IN A CHEMICAL DEPENDENCY/SUBSTANCEABUSE PROGRAM, SOME INFORMATION MAY BE OMITTED. This clinical summary was aggregated from multiple sources. Caution should be exercised in using it in the provision of clinical care. This summary normalizes information from multiple sources, and as a consequence, information in this document may materially change the coding, format and clinical context of patient data. In addition, data may be omitted in some cases. CLINICAL DECISIONS SHOULD BE BASED ON THE PRIMARY CLINICAL RECORDS. [email or web address] provides no warranty or guarantee of the accuracy or completeness of information in this document.
--- NOTE | 2023-05-09 07:39 | HP.PCM.OB_ITS ---
HPI - General General Date of Admission: 05/09/23 Date of Service: 05/09/23 HPI Narrative LACHELLE URENA, is a 27 F 39.5 weeks gestation who presents to L&D for induction of labor for gestational diabetes. Maternal Data Information UTE Calculator Estimated Delivery Date Method Current WG Current Estimate 05/11/23 LMP (Certain) 39w 5d Final UTE: 05/11/23 Final UTE Source: US >20 weeks Gestational age: 39.5 weeks [facility] Medical History Anxiety and depression Thyroid disease Home Medications levothyroxine 88 mcg capsule 88 mcg PO DAILY #30 caps 12/04/22 [Rx Last Taken 02/04/23 09:00 88 mcg] vits 75-iron 28 mg-folic acid 800 mcg-omega3 440 mg oral pack (One Daily ) 1 pkg PO DAILY 01/02/23 [History Last Taken 04/22/23 17:00 1 pkg] blood sugar diagnostic (Blood Glucose Test strips) #120 ea 02/12/23 [Rx Last Taken Unknown] blood-glucose meter #1 ea 02/12/23 [Rx Last Taken Unknown] lancets #200 ea 02/12/23 [Rx Last Taken Unknown] metformin 500 mg tablet 1,000 mg PO QHS 04/10/23 [History Last Taken 04/22/23 22:00 1,000 mg] Allergy/AdvReac Type Severity Reaction Status Date / Time No Known Allergies Allergy Verified 05/09/23 07:26 Family History Mother Diabetes Grandfather Heart disease Surgical History Bethany teeth extracted Social History number of children: 1 Smoking Status: Current some day smoker alcohol intake: current details: social - none during substance use type: does not use caffeine: Yes what type of physical activity do you participate in: none seatbelt use: always do you feel safe at home: Yes additional social history: [facility] History 2 Elective abortions Hx Para 1 Spontaneous abortions Hx # Term Pregnancies Ectopic pregnancies Hx # Pregnancies Multiple births # of living children Past Pregnancies Del. Date Name GA/Weeks Outcome Route Bth Weight Gen Labor Lgth Anesthesia Del Locatn Provider FOB Unknown 2016 Umesh 40 live - full term 8 lbs 9 oz Male 27 epidural Agatha Jimbo Delivery Date: Last Updated by: Annabelle Javier GBS+ Visit Details Expected Delivery Route/Plan labor Preferences- CB/BF classes: [] labor support person: Gonzalo labor intervention preferences: [] pain management options preferred: [] cut cord/dad catch: [] : [] PP control planned: [] discussed possible routes of delivery and associated risks: [] special requests: [] Plans Covid status: declined Flu vaccine: declined Tdap vaccine: declined Rhogam: na LARC form signed: declined movement and labor precautions reviewed. Problem list reviewed and updated with the most current plan of care details and appropriate orders placed. Relevant counseling for the gestational age provided. Continue routine care and follow up unless otherwise noted in visit notes/problem list details OB Flowsheet Initial Weight: Not Recorded Date -?-?-?-?-?-?-?-?-?-?-?-?- EGA Weight BP Urine Prot -?-?-?-?-?-?-?-?-?-?-?-?- Glucose FHR FuHt Pres Dilation -?-?-?-?-?-?-?-?-?-?-?-?- Effaced St Visit Note 10/04/22 -?-?-?-?-?-?-?-?-?-?-?-?- 8w 5d 195 lb 8 oz 114/80 -?-?-?-?-?-?-?-?-?-?-?-?- 171 -?-?-?-?-?-?-?-?-?-?-?-?- LC- CRL cw LMP. UTE 05/11/2023. LC- CRL cw LMP. UTE 05/11/2023 . accepts genetic screening. early 1 hour GCT 11/04/22 -?-?-?-?-?-?-?-?-?-?-?-?- 13w 1d 200 lb 2 oz Negative -?-?-?-?-?-?-?-?-?-?-?-?- Negative 165 -?-?-?-?-?-?-?-?-?-?-?-?- KW- STOPPED SMOK ING 3 weeks ago. no cramping or VB. US ordered. labs drawn today 12/04/22 -?-?-?-?-?-?-?-?-?-?-?-?- 17w 3d 204 lb 104/69 Negative -?-?-?-?-?-?-?-?-?-?-?-?- Negative 145 -?-?-?-?-?-?-?-?-?-?-?-?- LC- no vb/crampi ng.discussed and declines afp. 01/02/23 -?-?-?-?-?-?-?-?-?-?-?-?- 21w 4d 202 lb 8 oz 107/75 Nega tive -?-?-?-?-?-?-?-?-?-?-?-?- Negative 147 -?-?-?-?-?-?-?-?-?-?-?-?- JV- no lof, vagi nal bleeding, and feeling movement. normal anatomy scan and deciding on echo. (for fhx of PFO) 01/27/23 -?-?-?-?-?-?-?-?-?-?-?-?- 25w 1d 205 lb 8 oz 108/73 Nega tive -?-?-?-?-?-?-?-?-?-?-?-?- Negative 153 25 -?-?-?-?-?-?-?-?-?-?-?-?- LC- no vb/ctx/lo f. good fm. obtaining 28 week labs today. declines echo for now. 02/24/23 -?-?-?-?-?-?-?-?-?-?-?-?- 29w 1d 207 lb 4 oz 111/76 Nega tive -?-?-?-?-?-?-?-?-?-?-?-?- Negative 152 29 -?-?-?-?-?-?-?-?-?-?-?-?- JV- fasting's ar e 90's- 101 and she has tried snacks vs no snacks, nothing working. wants to try metformin but wants to give it one more week. no lof, vaginal bleeding, or dec fm. 03/10/23 -?-?-?-?-?-?-?-?-?-?-?-?- 31w 1d 206 lb 4 oz 104/73 -?-?-?-?-?-?-?-?-?-?-?-?- 140 31 -?-?-?-?-?-?-?-?-?-?-?-?- SM- fastings now -, didn't start any medication. seeing chiropractor for her back. no vb lof good fm no regular ctx SM- repeta labs drawn, fasti ngs now -, didn't start any medication. seeing chiropractor for her back. no vb lof good fm no regular ctx 03/24/23 -?-?-?-?-?-?-?-?-?-?-?-?- 33w 1d 213 lb 8 oz 111/75 Nega tive -?-?-?-?-?-?-?-?-?-?-?-?- Negative 155 32 -?-?-?-?-?-?-?-?-?-?-?-?- JV- fasting leve ls now 90's-111, starting metformin at bedtime now. no lof, vaginal bleeding, or dec fm. JV- fasting levels now 90's- 111, starting metformin at bedtime now. no lof, vaginal bleeding, or dec fm. start NSTs next visit. growth scan at 36 weeks. 04/08/23 -?-?-?-?-?-?-?-?-?-?-?-?- 35w 2d 210 lb 4 oz 110/76 Nega tive -?-?-?-?-?-?-?-?-?-?-?-?- Negative 140 35 -?-?-?-?-?-?-?-?-?-?-?-?- kw-no vb/lof/ctx . reports FM. Consulted with JV elevated fasting BS, plan to increase Metformin to 1000 at HS. kw-no vb/lof/ctx. reports FM . Consulted with JV elevated fasting BS, plan to increase Metformin to 1000 at HS. BPP today for minimal variability 04/10/23 -?-?-?-?-?-?-?-?-?-?-?-?- 35w 4d 212 lb 4 oz 93/63 Nega tive -?-?-?-?-?-?-?-?-?-?-?-?- Negative 145 -?-?-?-?-?-?-?-?-?-?-?-?- kw-reactive NST. good fm. 04/15/23 -?-?-?-?-?-?-?-?-?-?-?-?- 36w 2d 208 lb 8 oz 107/77 Nega tive -?-?-?-?-?-?-?-?-?-?-?-?- Negative 150 36 1 -?-?-?-?-?-?-?-?-?-?-?-?- kw- reactive NST . BS doing better on the 1000 mg metformin. gbs today. kw- reactive NST. BS doing b jered on the 1000 mg metformin. gbs today. thyroid labs ordered 04/18/23 -?-?-?-?-?-?-?-?-?-?-?-?- 36w 5d 209 lb 102/78 Negative -?-?-?-?-?-?-?--?-?-?-?-?- Negative 140 -?-?-?-?-?-?-?-?-?-?-?-?- SM- no vb lof go od fm no regular ctx 04/23/23 -?-?-?-?-?-?-?-?-?-?-?-?- 37w 3d 208 lb 4 oz 111/76 Nega tive -?-?-?-?-?-?-?-?-?-?-?-?- Negative 140 -?-?-?-?-?-?-?-?-?-?-?-?- JV- NST showed m oderate variability with accelerations for the first 17 minutes, however a spontaneous decel down to 90's for 45 seconds was noted that was then followed by minimal variability. sending to L&D for further monitoring. 04/25/23 -?-?-?-?-?-?-?-?-?-?-?-?- 37w 5d 209 lb 2 oz 118/74 Nega tive -?-?-?-?-?-?-?-?-?-?-?-?- Negative 135 -?-?-?-?-?-?-?-?-?-?-?-?- KW-Reactive NST today 04/29/23 -?-?-?-?-?-?-?-?-?-?-?-?- 38w 2d 212 lb 2 oz 110/75 Nega tive -?-?-?-?-?-?-?-?-?-?-?-?- Negative 150 38 -?-?-?-?-?-?-?-?-?-?-?-?- LC- reactive nst . no vb/ctx/lof. good fm. glucose controlled. had elevated glucose x1 after dessert on . no other elevations. fastings still under 90. declines exam. IOL set up for 05/09/2023. consent signed. to obtain VE next week for method, likely pitocin with or without villasenor. 05/02/23 -?-?-?-?-?-?-?-?-?-?-?-?- 38w 5d 208 lb 6 oz 124/82 -?-?-?-?-?-?-?-?-?-?-?-?- 130 -?-?-?-?-?-?-?-?-?-?-?-?- LC- reactive nst today.good bs 05/06/23 -?-?-?-?-?-?-?-?-?-?-?-?- 39w 2d 209 lb 6 oz 118/86 Nega tive -?-?-?-?-?-?-?-?-?-?-?-?- Negative 140 Cephalic 1 -?-?-?-?-?-?-?-?-?-?-?-?- MH-Reactive NST. Induction planned 05/09/23. Feeling nauseous, more pelvic pressure. FBS 120, 136 and 1 hr later 149. High carb dinner last night. Nothing to eat since. Will call if still elevated in 24 hr. Enc needs routine meals. All other reading prior are WNL NST FHR Rate Baby A Baseline: 145 Variability:: Moderate Accelerations:: 15 x 15 Decelerations:: None NST Reactive:: Yes FHR Category:: Category I Uterine Activity:: irregular ROS Constitutional Constitutional: Denies change in weight, fatigue, fever(s), headache(s), poor ap petite or weakness Eyes Eyes: Denies blurry vision, change in vision, floaters, seeing flashes or spots in vision ENT HEENT: Denies dizziness, headache(s), loss taste/smell or sore throat Cardiovascular Cardiovascular: Denies chest pain, dizziness, dyspnea, irregular heart rhythm, lightheadedness, palpitations or rapid heart rate Respiratory/Chest Respiratory/Chest: Denies change in mental status, chest tightness, cough, dyspnea or breast pain Gastrointestinal Gastrointestinal: Denies anorexia, chewing difficulty, constipation, diarrhea or weight changes Genitourinary Genitourinary: Denies difficulty urinating, dysuria, flank pain, genital pain, urinary frequency or urinary urgency Musculoskeletal Musculoskeletal: Denies back pain, difficulty walking, extremity pain, joint pain, muscle cramps or muscle weakness Integumentary Integumentary: Denies lesions or unusual bruising Neurologic Neurologic: Denies abnormal movements, abnormal speech, dizziness, numbness, seizure-like activity, syncope or weakness Psychiatric Psychiatric: Denies behavioral changes, change in appetite, confusion, depressio n, homicidal ideation, suicidal ideation or suicidal thoughts Endocrine Endocrinology: Denies excessive sweating, polydipsia or polyuria Hematologic/Lymphatic Hematologic/Lymphatic: Denies anemia Allergic/Immunologic Allergic/Immunologic: Denies itchy eyes, lip swelling, throat swelling, tongue swelling or wheezing Physical Exam Const alert, oriented x3 and no apparent distress General Appearance: cooperative Orientation / Consciousness: awake HEENT normocephalic Neck full ROM Lymph Lymphatic: no lymphadenopathy noted Chest inspection of chest normal Resp normal respiratory effort and normal air movement Effort and Inspection: able to speak in complete sentences and symmetric chest movement GI soft to palpation and non-tender Inspection: gravid Palpation: soft; Negative for tender external exam normal Back/Spine normal to inspection Extremity normal to inspection and full ROM Skin no rashes or lesions noted Psych mental status grossly normal Appearance: grossly normal Speech: normal speech Labs Labs Labs: Blood Type O POSITIVE Antibody Screen NEGATIVE Hct 37.3 % (37-47) Hgb 13.0 g/dL (12.0-15.0) Pap Smear Negative Obstetrics Ultrasound Syphilis Total Ab Non-reactive VZV IgG Antibody 2810 index (Immune >165) Rubella IgG Antibody Reactive (Nonreactive) Hep Bs Antigen Non-Reactive (Nonreactive) Hepatitis C Antibody Non-Reactive (Nonreactive) Chlamydia DNA (REBECCA) Negative (Negative) N.gonorrhoeae DNA (REBECCA) Negative (Negative) HIV 1&2 Antibody Non-Reactive (Nonreactive) Glucose 1 Hr 50 gm 139 mg/dL (70-140) Gest Glucose Tolerance MG/DL Group B Strep DNA Negative (Negative) Rhogam given: No Miscellaneous Test Assessment & Plan (1) Encounter for induction of labor: PLAN: Patient presents IOL, plan management for with pitocin/AROM. Pain management: plans epidural. GBS negative. Management of any complications: GDM-metformin, thyroid I have reviewed the [facility] and made any clinically relevant updates. (2) heart rate decelerations affecting management of mother: COMMENT: bpp 12/10, fredo 17 (3) Gestational diabetes: QUALIFIERS: Gestational diabetes mellitus control: oral hypoglycemic-controlled Trimester: third trimester Qualified Code(s): O24.415 - Gestational diabetes mellitus in , controlled by oral hypoglycemic drugs COMMENT: metformin- 2x weekly NSTs and growth US at 36(57%) (4) Family history of congenital heart defect: COMMENT: echo recommended, declines (5) Teratogen exposure in current , single gestation: COMMENT: shingles exposure titer drawn, 11/07/22 immune to varicella (6) Tobacco use during : QUALIFIERS: Trimester: third trimester Qualified Code(s): O99.333 - Smoking (tobacco) complicating , third trimester COMMENT: cessation recommended, down to 1-2/day (7) : QUALIFIERS: Weeks of gestation: 38 weeks Qualified Code(s): Z3A.38 - 38 weeks gestation of COMMENT: neg gbs, NIPT low risk, Carrier neg. , nl anatomy late to obtain HIV/syp. obtain second with tsh in 3rd trimester labs around 34- 36 weeks. (8) , supervision, high-risk: QUALIFIERS: Trimester: third trimester Qualified Code(s): O09.93 - Supervision of high risk , unspecified, third trimester COMMENT: PRR UTE 05/11/2023, PC: [place]: gonzalo IOL planned 05/09/23 (9) Anxiety and depression: COMMENT: stable (10) Thyroid disease: COMMENT: hypothyroidism - CHECK TSHR-AB AT 36 WEEKS-negative on synthyroid 88mcg, refill sent. checking q trimester . 05.10 (11) Genital warts: (12) ASCUS with positive high risk HPV cervical: Charges/Coding Multi Select Codes Urinary/Genital Urinary/Genital CPT Codes: No Charge
[2023-05-09] MEDS: Lactated Ringers 1,000 ML 50 ML IV (07:51)
[2023-05-09 08:01] LABS: Absolute Lymphocyte Count 2.27 X10^3/uL (0.83-4.51); Absolute Neutrophil Count 5.1 X10^3/uL (2.0-7.7); Basophil# 0.02 X10^3/uL; Basophil% 0.3 % (0-1); Eosinophil# 0.04 X10^3/uL; Eosinophils% 0.5 % (0-5); Hematocrit 38.5 % (37-47); Hemoglobin 12.9 g/dL (12.0-15.0); Lymphocyte # 2.27 X10^3/ul (0.83-4.51); Lymphocyte % 28.4 % (19-41); Mean Corp Hgb Conc 33.5 g/dL (32-36); Mean Corpuscular Hgb 29.2 pg (27.0-32.0); Mean Corpuscular Volume 87.1 fL (81-99); Mean Platelet Vol. 11.6 fl (6.2-12.0); Monocyte# 0.53 X10^3/uL; Monocyte% 6.6 % (0-10); NRBC Flagged by Analyzer 0 % (0-5); Neutrophil # 5.08 X10^3/uL (2.7-7.7); Neutrophil % 63.7 % (47-70); Platelet Count 183 K/mm3 (150-450); RBC Distribution Width CV 12.9 % (11.6-14.6); RBC Distribution Width SD 40.7 fl (35.1-43.9); Red Blood Count 4.42 M/mm3 (4.2-5.4)
[2023-05-09] MEDS: Oxytocin 15 Units/NS 250ml 15 UNITS/250 ML IV.SOLN 2 UNITS IV (08:32)
[2023-05-09 08:43] LABS: Syphilis Antibodies Non-reactive
[2023-05-09 09:17] LABS: Bedside Glucose 96 mg/dL (74-106)
[2023-05-09 09:54] LABS: Bedside Glucose 89 mg/dL (74-106)
--- NOTE | 2023-05-09 12:50 | PN_ITS ---
Progress Note Coping well with contractions current tracing: FHT: 135 Moderate variability reactive no decelerations category I tracing [place]: 3-4 moderate Contractions-starting to feel cramping Membranes:intact SVE:3/-2 Pitocin 10mu A/P: Continue with position changes Titrate pitocin per protocol Epidural per anesthesia Anticipate Dr Esquivel aware of above assessment and agrees with plan of care Assessment & Plan Assessment/Plan (1) Encounter for induction of labor: (2) heart rate decelerations affecting management of mother: (3) Gestational diabetes: QUALIFIERS: Gestational diabetes mellitus control: oral hypoglycemic-controlled Trimester: third trimester Qualified Code(s): O24.415 - Gestational diabetes mellitus in , controlled by oral hypoglycemic drugs (4) : QUALIFIERS: Weeks of gestation: 38 weeks Qualified Code(s): Z3A.38 - 38 weeks gestation of (5) Tobacco use during : QUALIFIERS: Trimester: third trimester Qualified Code(s): O99.333 - Smoking (tobacco) complicating , third trimester (6) , supervision, high-risk: QUALIFIERS: Trimester: third trimester Qualified Code(s): O09.93 - Supervision of high risk , unspecified, third trimester (7) ASCUS with positive high risk HPV cervical: (8) Genital warts: (9) Anxiety and depression: (10) Thyroid disease: Multi Select Codes Urinary/Genital Urinary/Genital CPT Codes: No Charge
[2023-05-09 14:10] LABS: Bedside Glucose 75 mg/dL (74-106)
[2023-05-09] MEDS: LACTATED RINGERS 500 ML 999 ML IV (16:55)
--- NOTE | 2023-05-09 17:01 | PCM.PN.BLA ---
Progress Note Coping well with contractions current tracing: FHT: 135 Moderate variability reactive no decelerations category I tracing [place]: 3-4 minutes Contractions Membranes:intact SVE:4.5/80/-2 pitocin 14mu A/P: Continue with position changes Titrate pitocin per protocol Epidural per anesthesia GBS neg AROM when comfortable with epidural Anticipate [Sierra] [Joel] aware of above assessment and agrees with plan of care Assessment & Plan Assessment/Plan (1) Encounter for induction of labor: (2) heart rate decelerations affecting management of mother: (3) Tetanus, diphtheria, and acellular pertussis (Tdap) vaccination declined: (4) Segmental and somatic dysfunction of thoracic region: (5) Gestational diabetes: QUALIFIERS: Gestational diabetes mellitus control: oral hypoglycemic-controlled Trimester: third trimester Qualified Code(s): O24.415 - Gestational diabetes mellitus in , controlled by oral hypoglycemic drugs (6) Family history of congenital heart defect: (7) Teratogen exposure in current , single gestation: (8) Tobacco use during : QUALIFIERS: Trimester: third trimester Qualified Code(s): O99.333 - Smoking (tobacco) complicating , third trimester (9) : QUALIFIERS: Weeks of gestation: 38 weeks Qualified Code(s): Z3A.38 - 38 weeks gestation of (10) , supervision, high-risk: QUALIFIERS: Trimester: third trimester Qualified Code(s): O09.93 - Supervision of high risk , unspecified, third trimester (11) ASCUS with positive high risk HPV cervical: (12) Genital warts: (13) Anxiety and depression: (14) Thyroid disease: Multi Select Codes Urinary/Genital Urinary/Genital CPT Codes: No Charge
[2023-05-09] MEDS: fentaNYL-bupivacaine (epidural) 100 ML BAG EPIDURAL (17:39)
[2023-05-09 17:42] LABS: Bedside Glucose 74 mg/dL (74-106)
[2023-05-09] MEDS: Lidocaine 1% (20 ml mdv) 20 ML Vial INFILT (18:10)
[2023-05-09] MEDS: Methylergonovine 0.2 MG/ML Ampul 0.200000000000000011 MG IM (18:17)
--- NOTE | 2023-05-09 18:34 | OP.PCM_ITS ---
Assessment & Plan (1) Vaginal delivery: COMMENT: KW IOL GDM GIRL (2) Gestational diabetes: QUALIFIERS: Gestational diabetes mellitus control: oral hypoglycemic-controlled Trimester: third trimester Qualified Code(s): O24.415 - Gestational diabetes mellitus in , controlled by oral hypoglycemic drugs COMMENT: metformin- 2x weekly NSTs and growth US at 36(57%) (3) Tobacco use during : QUALIFIERS: Trimester: third trimester Qualified Code(s): O99.333 - Smoking (tobacco) complicating , third trimester COMMENT: cessation recommended, down to 1-2/day (4) Thyroid disease: COMMENT: hypothyroidism - CHECK TSHR-AB AT 36 WEEKS-negative on synthyroid 88mcg, refill sent. checking q trimester . 05.10 (5) Anxiety and depression: COMMENT: stable (6) Genital warts: (7) ASCUS with positive high risk HPV cervical: (8) , supervision, high-risk: QUALIFIERS: Trimester: third trimester Qualified Code(s): O09.93 - Supervision of high risk , unspecified, third trimester COMMENT: PRR UTE 05/11/2023, PC: [place]: gonzalo IOL planned 05/09/23 (9) : QUALIFIERS: Weeks of gestation: 38 weeks Qualified Code(s): Z3A.38 - 38 weeks gestation of COMMENT: neg gbs, NIPT low risk, Carrier neg. , nl anatomy late to obtain HIV/syp. obtain second with tsh in 3rd trimester labs around 34- 36 weeks. (10) Teratogen exposure in current , single gestation: COMMENT: shingles exposure titer drawn, 11/07/22 immune to varicella (11) heart rate decelerations affecting management of mother: COMMENT: bpp 12/10, fredo 17 Maternal Data Information UTE Calculator Estimated Delivery Date Method Current WG Current Estimate 05/11/23 LMP (Certain) 39w 5d Final UTE: 05/11/23 Final UTE Source: US >20 weeks Gestational age: 39.5weeks Vaginal Delivery Maternal Presentation Maternal Presentation: Medically Indicated Induction Maternal Presentation: Progressed quickly to 10cm dilated and made steady progress with effective maternal pushing. Delivered the head in LINA presentation. The head was delivered atraumatically and no nuchal cord was identified. The anterior and posterior shoulders delivered without complication followed by the rest of the infant and the infant was placed on the maternal abdomen. Delayed cord clamping was employed for approximately 5 minutes. Cord was clamped and cut and gentle traction was applied to the cord and the placenta delivered spontaneously. Immediately following, it was noted to be intact with a 3 vessel cord. The perineum and vagina were inspected and noted to have a first degree laceration which was repaired with 3-0 Vicryl in the usual fashion. EBL was 100cc. Patient and tolerated delivery well. Apgars 8/9. Dr Esquivel notified of vaginal delivery and orders reviewed. Physician agrees with current plan of care. Type of Induction: Pitocin Medical Reason for Induction: Maternal Medical Condition: list: (GDM) Operative Information Date of Procedure: 05/09/23 Pre-Operative Diagnosis: See AP comments Post-Operative Diagnosis: Same Surgery / Procedure Performed: Spontaneous Vaginal Delivery book sorter #1: Amaya Giron Type of Anesthesia: Epidural Estimated Blood Loss: 100 Time of Delivery: 18:05 Findings Presentation: Vertex Amniotic Membrane Rupture Type: Spontaneous Amniotic Fluid Description: Clear Placental Delivery Description: Spontaneous Placenta Disposition: [facility] Cord Vessel Description: 3 Vessels Cord Entanglement: None Infant A Gender: Female (1 minute): 8 (5 minute): 9 Delayed Cord Clamping: Yes Post Vaginal Delivery Medications Given After Delivery: IV Pitocin and IM Methergin Episiotomy Description: None Laceration: 1st degree Complication Complications: None Multi Select Codes Urinary/Genital Urinary/Genital CPT Codes: 11854 Vaginal Delivery [facility]
--- NOTE | 2023-05-09 18:40 | DCINST_ITS ---
Discharge Instructions Diet Discharge Diet: No restrictions Activity Discharge Activity: Return to Normal Activity May resume sexual activity in: 6-8 weeks Dressing / Incision Call your doctor if you observe: Fever of 101 or Higher, Coldness, Increased Pain, Numbness or Tingling, Change in Color, Inability to urinate, Inability to have a bowel movement, Using more than 1 pad per hour, Shortness of breath, Dizziness, Fainting spells, Swelling in the ankles, Chest pain, Increased palpitations (irregular heartbeat), Calf discomfort and Uncontrolled pain Follow Up Care Please Follow Up With: Amaya Giron CNM When: Please call the office to schedule your follow up appointment in 6 weeks. If you had high blood pressure please call to schedule an appointment in 2 weeks. Test Results: Test results from this visit will be discussed in further detail at your follow- up appointment, if applicable. Discharge Plan Admission Admit Date/Time: 05/09/23 07:20 Attending Provider: France Rowland Primary Care Provider: Edilberto Jordan Discharge Orders/Prescriptions Prescriptions: No Action levothyroxine 88 mcg capsule 88 mcg capsule 88 mcg PO DAILY Qty: 30 3RF One Daily 28-800-440 mg-mcg-mg combo pack 1 pkg PO DAILY metformin 500 mg tablet 1,000 mg PO QHS (DME) blood-glucose meter Misc See Rx Instructions .MEDSUPPLY Qty: 1 0RF Rx Instructions: As directed- Test fasting and 2 hours after meals (DME) lancets Misc See Rx Instructions .MEDSUPPLY Qty: 200 6RF Rx Instructions: As directed-fasting & 2 HR post meals (DME) Blood Glucose Test Strip See Rx Instructions .Route Qty: 120 6RF Rx Instructions: As directed- fasting & 2 HR post meals Referrals / Follow Up: Edilberto oJrdan MD [Primary Care Provider] -
[2023-05-09] MEDS: Oxytocin 15 Units/NS 250ml 15 UNITS/250 ML IV.SOLN 83 UNITS IV (19:00)
[2023-05-09 19:52] LABS: Bedside Glucose 69 mg/dL (74-106)
[2023-05-09 20:31] LABS: Bedside Glucose 84 mg/dL (74-106)
[2023-05-09] MEDS: Ibuprofen 600 MG Tablet PO (23:26)
[2023-05-10] VITALS (10 sets, daily range): BP systolic 109–120; BP diastolic 66–78; PULSE 77–98; RESP 14–16; TEMP 36.2–36.6; O2SAT 98–99
[2023-05-10 04:43] LABS: Bedside Glucose 104 mg/dL (74-106)
[2023-05-10] MEDS: Ibuprofen 600 MG Tablet PO ×3 (05:15→20:55)
--- NOTE | 2023-05-10 10:22 | PN.OBGYN_ITS ---
Subjective Subjective Patient doing well without complaints. Tolerating PO. Ambulating and voiding without difficulty. Feeding well. Denies chest pain, shortness of breath, calf pain/swelling, fevers, chills, lightheadedness. Objective Data Objective Data Vital Signs: Vital Signs Temp Pulse Resp BP Pulse Ox O2 Del Method 97.5 F L 77 16 114/67 98 Room Air 05/10/23 08:06 05/10/23 08:06 05/10/23 08:06 05/10/23 08:06 05/10/23 08:06 05/10/23 08:06 Oxygen Delivery Method Room Air Weight: 208 lb 8.917 oz Body Mass Index (BMI) 35.8 Intake & Output: Intake and Output for Last 24 Hours 05/08/23 05/09/23 05/10/23 23:59 23:59 23:59 Intake Total 2317.02 / 2317.02 Output Total 2049 / 2049 Balance 267.02 / 267.02 Lab / Micro Data Attestation: I reviewed the patient's lab results. 05/09/23 07:40 Labs: Laboratory Results - last 24 hr 05/09/23 13:45: POC Glucose 75 05/09/23 17:21: POC Glucose 74 05/09/23 19:27: POC Glucose 69 L 05/09/23 19:47: POC Glucose 84 05/10/23 04:24: POC Glucose 104 ROS Constitutional Constitutional: Reports systems reviewed and no addt'l complaints, except as documented; Denies anorexia or headache(s) Cardiovascular Cardiovascular: Reports systems reviewed and no addt'l complaints, except as documented; Denies dizziness, dyspnea, nausea or tachypnea Respiratory/Chest Respiratory/Chest: Reports systems reviewed and no addt'l complaints, except as documented; Denies cough, dyspnea, shortness of breath at rest or tachypnea Gastrointestinal Gastrointestinal: Reports systems reviewed and no addt'l complaints, except as documented; Denies abdominal pain, constipation or nausea Genitourinary Genitourinary: Reports systems reviewed and no addt'l complaints, except as documented; Denies burning urination, difficulty urinating, dysuria, urinary frequency or urinary incontinence Musculoskeletal Musculoskeletal: Reports systems reviewed and no addt'l complaints, except as documented Integumentary Integumentary: Reports systems reviewed and no addt'l complaints, except as documented Neurologic Neurologic: Reports systems reviewed and no addt'l complaints, except as documented; Denies abnormal speech, dizziness or headache(s) Psychiatric Psychiatric: Reports systems reviewed and no addt'l complaints, except as documented Endocrine Endocrinology: Reports systems reviewed and no addt'l complaints, except as documented Hematologic/Lymphatic Hematologic/Lymphatic: Reports systems reviewed and no addt'l complaints, except as documented Physical Exam Const alert, oriented x3 and no apparent distress Neck full ROM Resp normal respiratory effort, normal air movement and no retractions Effort and Inspection: able to speak in complete sentences and symmetric chest movement GI soft to palpation Bladder / Kidney Exam: bladder normal to palpation Uterus Palpation: uterus fundus firm Extremity normal to inspection and full ROM Psych mental status grossly normal, thought process normal and cooperative Assessment & Plan (1) Vaginal delivery: COMMENT: KW IOL GDM GIRL PLAN: s/p PPD # 1 1. routine post delivery care 2. breast feeding- support given 3. rh positive 4. rubella immune 5. Discharge Home (2) Gestational diabetes: QUALIFIERS: Gestational diabetes mellitus control: oral hypoglycemic-controlled Trimester: third trimester Qualified Code(s): O24.415 - Gestational diabetes mellitus in , controlled by oral hypoglycemic drugs COMMENT: metformin- 2x weekly NSTs and growth US at 36(57%) (3) Tobacco use during : QUALIFIERS: Trimester: third trimester Qualified Code(s): O99.333 - Smoking (tobacco) complicating , third trimester COMMENT: cessation recommended, down to 1-2/day (4) : QUALIFIERS: Weeks of gestation: 38 weeks Qualified Code(s): Z3A.38 - 38 weeks gestation of COMMENT: neg gbs, NIPT low risk, Carrier neg. , nl anatomy late to obtain HIV/syp. obtain second with tsh in 3rd trimester labs around 34- 36 weeks. (5) , supervision, high-risk: QUALIFIERS: Trimester: third trimester Qualified Code(s): O09.93 - Supervision of high risk , unspecified, third trimester COMMENT: PRR UTE 05/11/2023, PC: [place]: gonzalo IOL planned 05/09/23 (6) ASCUS with positive high risk HPV cervical: (7) Genital warts: (8) Anxiety and depression: COMMENT: stable (9) Thyroid disease: COMMENT: hypothyroidism - CHECK TSHR-AB AT 36 WEEKS-negative on synthyroid 88mcg, refill sent. checking q trimester . november 02. Charges/Coding Multi Select Codes Urinary/Genital Urinary/Genital CPT Codes: No Charge
--- NOTE | 2023-05-10 10:27 | DCINST_ITS ---
Discharge Instructions Diet Discharge Diet: No restrictions Activity Discharge Activity: Return to Normal Activity May resume sexual activity in: 6-8 weeks Dressing / Incision Call your doctor if you observe: Fever of 101 or Higher, Coldness, Increased Pain, Numbness or Tingling, Change in Color, Inability to urinate, Inability to have a bowel movement, Using more than 1 pad per hour, Shortness of breath, Dizziness, Fainting spells, Swelling in the ankles, Chest pain, Increased palpitations (irregular heartbeat), Calf discomfort and Uncontrolled pain Follow Up Care Please Follow Up With: Amaya Giron CNM When: Please call the office to schedule your follow up appointment in 6 weeks. If you had high blood pressure please call to schedule an appointment in 2 weeks. Test Results: Test results from this visit will be discussed in further detail at your follow- up appointment, if applicable. Discharge Plan Admission Admit Date/Time: 05/09/23 07:20 Attending Provider: France Rowland Primary Care Provider: Edilberto Jordan Discharge Orders/Prescriptions Prescriptions: No Action levothyroxine 88 mcg capsule 88 mcg capsule 88 mcg PO DAILY Qty: 30 3RF One Daily 28-800-440 mg-mcg-mg combo pack 1 pkg PO DAILY metformin 500 mg tablet 1,000 mg PO QHS (DME) blood-glucose meter Misc See Rx Instructions .MEDSUPPLY Qty: 1 0RF Rx Instructions: As directed- Test fasting and 2 hours after meals (DME) lancets Misc See Rx Instructions .MEDSUPPLY Qty: 200 6RF Rx Instructions: As directed-fasting & 2 HR post meals (DME) Blood Glucose Test Strip See Rx Instructions .Route Qty: 120 6RF Rx Instructions: As directed- fasting & 2 HR post meals Referrals / Follow Up: Edilberto Jordan MD [Primary Care Provider] - Disposition Disposition (needs filled in before D/C Order can be placed): Home, Self Care
--- NOTE | 2023-05-10 11:06 | CASEMGMT ---
Social Work Assessment Labor and Delivery Unit Date/Time of referral: 05/09/2024 Referred by: RN Date/Time of assessment: 05/10/23, 9:15AM Reason for referral: History of anxiety, depression, PPD History obtained from: MOB and FOB. SW able to ask MOB privately if okay to speak w/her w/FOB present, she states yes Household composition: MOB, FOB, MOB's 7 yr old son and now baby Lena. ALYSIA also has an 8 year old daughter who comes to stay every other weekend. FOB and MOB have been together for five years. FOB for first child not involved. MOB for 8 year old is involved, this is with whom the 8 year old primarily lives. Parent/Guardian status: FOB and MOB are guardians of the baby Medical History: MOB: Gestational Diabetes Baby: Born 18:05 on 05/[birth year]/23, Apgars 8 and 9 at one and five minutes. 3360 grams at . Educational status: Both MOB and FOB completed high school, and additional training. 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 Financial Status: No concerns other than they have a high deductible and ALYSIA is concerned about hospital bill. SW advised for him to call the financial dept when they get the bill to see if they qualify for any aide or if can set up a payment plan. They both plan to continue to work. MOB will return to work eventually PRN. supplies: They have all needed supplies including car seat, bassinet, crib, clothing, diapers, wipes, access to formula and bottles if needed. MOB plans to breast feed. Childcare/Caregivers: MOB's mother, MOB's sister, ALYSIA's family would also help if needed. Transportation: They have 2 vehicles Programs/Agencies involved/Children's Services/Legal Issues: None Behavioral Health: Substance abuse--no history for MOB or FOB. No tox screens completed on MOB or baby. Mental Health--FOB: Some anxiety, takes Buspar PRN but is not in counseling, has never felt the need for it. MOB--history of anxiety, depression, PPD. MOB states has been managing well recently. She was taking Buspar also but stopped once . She would go back on meds if needed. MOB has been in counseling but not for several years. MOB explains the PPD after the first child was related to the situation at that time, and that things are much different now. Family/Social Stressors: None Support systems: Family as mentioned above, their jain. Depression/Anxiety, safe sleeping, Help Me Grow, Shaken Baby, counseling resources, mental health hotlines, [facility] Resources: SW gave information on all of these topics and reviewed w/MOB. SW reviewed in particular warning signs of depression and anxiety, and educated that if having symptoms to reach out to physician as some new moms will go on a mood stabilizer temporarily. MOB states understanding. SW also spoke w/MOB about counseling if needed, MOB given resources for counseling. Assessment: MOB and FOB appropriate w/SW, answered all questions appropriately. MOB holding baby while SW speaking w/them, appropriate in care of child. Plan: Baby to go home w/MOB and FOB at discharge. No further social service needs anticipated at this time. BHARAT Guajardo
[2023-05-11 02:30] VITALS: BP 124/61; PULSE 65; RESP 16; TEMP 36.2; O2SAT 97
[2023-05-11 02:33] VITALS: BP 124/61; PULSE 69
--- NOTE | 2023-05-11 05:55 | NURSING ---
Report given to Carola SIEGEL, taking over pt and care at this time.
--- NOTE | 2023-05-11 06:53 | PN.OBGYN_ITS ---
Subjective Subjective Patient doing well without complaints. Tolerating PO. Ambulating and voiding without difficulty. Feeding well. Denies chest pain, shortness of breath, calf pain/swelling, fevers, chills, lightheadedness. Objective Data Objective Data Vital Signs: Vital Signs Temp Pulse Resp BP Pulse Ox O2 Del Method 97.1 F L 69 16 124/61 H 97 Room Air 05/11/23 02:30 05/11/23 02:33 05/11/23 02:30 05/11/23 02:33 05/11/23 02:30 05/11/23 02:30 Oxygen Delivery Method Room Air Weight: 208 lb 8.917 oz Body Mass Index (BMI) 35.8 Intake & Output: Intake and Output for Last 24 Hours 05/09/23 05/10/23 05/11/23 23:59 23:59 23:59 Intake Total 2317.02 / 2317.02 Output Total 2049 / 2049 Balance 267.02 / 267.02 Lab / Micro Data 05/09/23 07:40 ROS Constitutional Constitutional: Reports systems reviewed and no addt'l complaints, except as documented; Denies anorexia or headache(s) Cardiovascular Cardiovascular: Reports systems reviewed and no addt'l complaints, except as documented; Denies dizziness, dyspnea, nausea or tachypnea Respiratory/Chest Respiratory/Chest: Reports systems reviewed and no addt'l complaints, except as documented; Denies cough, dyspnea, shortness of breath at rest or tachypnea Gastrointestinal Gastrointestinal: Reports systems reviewed and no addt'l complaints, except as documented; Denies abdominal pain, constipation or nausea Genitourinary Genitourinary: Reports systems reviewed and no addt'l complaints, except as documented; Denies burning urination, difficulty urinating, dysuria, urinary frequency or urinary incontinence Musculoskeletal Musculoskeletal: Reports systems reviewed and no addt'l complaints, except as documented Integumentary Integumentary: Reports systems reviewed and no addt'l complaints, except as documented Neurologic Neurologic: Reports systems reviewed and no addt'l complaints, except as documented; Denies abnormal speech, dizziness or headache(s) Psychiatric Psychiatric: Reports systems reviewed and no addt'l complaints, except as documented Endocrine Endocrinology: Reports systems reviewed and no addt'l complaints, except as documented Hematologic/Lymphatic Hematologic/Lymphatic: Reports systems reviewed and no addt'l complaints, except as documented Physical Exam Const alert, oriented x3 and no apparent distress Neck full ROM Resp normal respiratory effort, normal air movement and no retractions Effort and Inspection: able to speak in complete sentences and symmetric chest movement GI soft to palpation Bladder / Kidney Exam: bladder normal to palpation Uterus Palpation: uterus fundus firm Extremity normal to inspection and full ROM Psych mental status grossly normal, thought process normal and cooperative Assessment & Plan (1) Vaginal delivery: COMMENT: KW IOL GDM GIRL (2) Encounter for induction of labor: (3) Gestational diabetes: QUALIFIERS: Gestational diabetes mellitus control: oral hypoglycemic-controlled Trimester: third trimester Qualified Code(s): O24.415 - Gestational diabetes mellitus in , controlled by oral hypoglycemic drugs COMMENT: metformin- 2x weekly NSTs and growth US at 36(57%) (4) Family history of congenital heart defect: COMMENT: echo recommended, declines (5) Teratogen exposure in current , single gestation: COMMENT: shingles exposure titer drawn, 11/07/22 immune to varicella (6) Tobacco use during : QUALIFIERS: Trimester: third trimester Qualified Code(s): O99.333 - Smoking (tobacco) complicating , third trimester COMMENT: cessation recommended, down to 1-2/day (7) : QUALIFIERS: Weeks of gestation: 38 weeks Qualified Code(s): Z3A.38 - 38 weeks gestation of COMMENT: neg gbs, NIPT low risk, Carrier neg. , nl anatomy late to obtain HIV/syp. obtain second with tsh in 3rd trimester labs around 34- 36 weeks. (8) , supervision, high-risk: QUALIFIERS: Trimester: third trimester Qualified Code(s): O09.93 - Supervision of high risk , unspecified, third trimester COMMENT: PRR UTE 05/11/2023, PC: [place]: gonzalo IOL planned 05/09/23 (9) ASCUS with positive high risk HPV cervical: (10) Genital warts: (11) Anxiety and depression: COMMENT: stable (12) Thyroid disease: COMMENT: hypothyroidism - CHECK TSHR-AB AT 36 WEEKS-negative on synthyroid 88mcg, refill sent. checking q trimester . november 02. Charges/Coding Multi Select Codes Urinary/Genital Urinary/Genital CPT Codes: No Charge
--- NOTE | 2023-05-11 06:54 | PCM.DC ---
Discharge Instructions Diet Discharge Diet: No restrictions Activity May resume sexual activity in: 6-8 weeks Dressing / Incision Call your doctor if you observe: Fever of 101 or Higher, Coldness, Increased Pain, Numbness or Tingling, Change in Color, Inability to urinate, Inability to have a bowel movement, Using more than 1 pad per hour, Shortness of breath, Dizziness, Fainting spells, Swelling in the ankles, Chest pain, Increased palpitations (irregular heartbeat), Calf discomfort and Uncontrolled pain Follow Up Care Please Follow Up With: Amaya Giron CNM Test Results: Test results from this visit will be discussed in further detail at your follow-up appointment, if applicable. Discharge Plan Admission Admit Date/Time: 05/09/23 07:20 Attending Provider: France Rowland Primary Care Provider: Edilberto Jordan Discharge Orders/Prescriptions Prescriptions: No Action levothyroxine 88 mcg capsule 88 mcg capsule 88 mcg PO DAILY Qty: 30 3RF One Daily 28-800-440 mg-mcg-mg combo pack 1 pkg PO DAILY metformin 500 mg tablet 1,000 mg PO QHS (DME) blood-glucose meter Misc See Rx Instructions .MEDSUPPLY Qty: 1 0RF Rx Instructions: As directed- Test fasting and 2 hours after meals (DME) lancets Misc See Rx Instructions .MEDSUPPLY Qty: 200 6RF Rx Instructions: As directed-fasting & 2 HR post meals (DME) Blood Glucose Test Strip See Rx Instructions .Route Qty: 120 6RF Rx Instructions: As directed- fasting & 2 HR post meals Referrals / Follow Up: Edilberto Jordan MD [Primary Care Provider] - Disposition Disposition (needs filled in before D/C Order can be placed): Home, Self Care
[2023-05-11 08:19] VITALS: BP 111/67; PULSE 74; O2SAT 99
[2023-05-11 08:20] VITALS: BP 111/67; PULSE 72; RESP 14; TEMP 36.1; O2SAT 98
== END 2023-05-11 11:10 | disposition home or self-care (01) | DRG 806 ==
PROVIDERS: Admitting Provider Advanced Practice Midwife; PCP Family Medicine; Referring Provider Advanced Practice Midwife; Visit Provider Registered Nurse
DX: O24.425 Gestational diabetes mellitus in childbirth, controlled by oral hypoglycemic drugs (principal); Z37.0 Single live birth; O98.32 Other infections with a predominantly sexual mode of transmission complicating childbirth; E03.9 Hypothyroidism, unspecified; F32.A Depression, unspecified; F41.9 Anxiety disorder, unspecified; F17.200 Nicotine dependence, unspecified, uncomplicated; O99.284 Endocrine, nutritional and metabolic diseases complicating childbirth; Z28.21 Immunization not carried out because of patient refusal; A63.0 Anogenital (venereal) warts; O99.334 Smoking (tobacco) complicating childbirth; O70.0 First degree perineal laceration during delivery; O99.344 Other mental disorders complicating childbirth; Z82.79 Family history of other congenital malformations, deformations and chromosomal abnormalities; Z3A.39 39 weeks gestation of pregnancy; O76 Abnormality in fetal heart rate and rhythm complicating labor and delivery
CPT/HCPCS: 59025; 59050; 82962; 85025; 86780; 86850; 86900; 86901; 99221; J7120; G0378